=== PATIENT | male | born 1945 | race Caucasian/White ===

== ENCOUNTER → 2017-10-02 06:59 | Outpatient (CLI) | payer MEDICARE, OTHER, SELFPAY ==
[2017-10-02 08:51] LABS: Aspartate Aminotransferase 26 IU/L (17-59); Cholesterol 150 mg/dL (140-199); HDL Cholesterol 65 mg/dL (40-60); LDL Cholesterol Calculated 71 mg/dL (<100); Triglycerides 70 mg/dL (35-150)
== END ==
PROVIDERS: Family Provider Internal Medicine; PCP Internal Medicine; Visit Provider Internal Medicine
DX: E78.00 Pure hypercholesterolemia, unspecified (principal)
CPT/HCPCS: 36415; 80061; 84450

== ENCOUNTER → 2017-11-12 07:14 | Outpatient (CLI) | payer MEDICARE, OTHER, SELFPAY ==
[2017-11-12 08:39] LABS: BUN Creatinine Ratio 21.1 (6-22); Blood Urea Nitrogen 19 mg/dL (9-20); Estimated Glomerular Filt Rate > 60.0 mL/min (>60)
== END ==
PROVIDERS: Family Provider Internal Medicine; PCP Internal Medicine; Visit Provider Internal Medicine
DX: I72.8 Aneurysm of other specified arteries (principal)
CPT/HCPCS: 36415; 82565; 84520

== ENCOUNTER → 2017-11-14 11:28 | Outpatient (CLI) | payer MEDICARE, OTHER, SELFPAY ==
--- NOTE | 2017-11-14 | DI.CT.S_ITS ---
PROCEDURE: CT ANGIO ABDOMEN INDICATIONS: ANEURYSM OF OTHER SPECIFIED ARTIERIES TECHNIQUE: Noncontrast 5 mm axial images obtained through the abdomen. The After the administration of intravenous contrast, 3 mm sections acquired from the diaphragm to the iliac crests. 10 mm maximum intensity projection (MIP) coronal and sagittal reformats were then performed. For radiation dose reduction, the following was used: automated exposure control. COMPARISON: Outside Facility, , CT ABDOMEN/PELVIS WITH CONTRAST, 03/02/2017, 12:27. Outside Facility, , CT ANGIOGRAPHY ABDOMEN AND PELVIS, 05/07/2017, 11:44. FINDINGS: Image quality: Excellent. Extravascular tissues: There is mild dependent atelectasis. Heart size is normal. No focal hepatic lesions identified. Gallbladder appears within normal limits without calcified gallstones. Biliary system is non dilated. Pancreas demonstrates no pancreatic duct dilatation no discrete mass lesion. Spleen is normal in size and enhancement. No adrenal nodules. Kidneys demonstrate no hydronephrosis. Visualized bowel loops demonstrate normal wall thickness and caliber. No free fluid or air. No retroperitoneal or mesenteric adenopathy. No ventral hernias. No suspicious bony abnormalities. No vertebral body compression fractures. Abdominal aorta: The abdominal aorta is normal in caliber and appears widely patent. Mesenteric arteries: The celiac artery as well as the splenic and left hepatic artery appear widely patent. There is a replaced right hepatic artery originating from the superior mesenteric artery. There is interval placement of a stent graft through the proximal right hepatic artery. 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 No internal flow demonstrated into the aneurysm. The more distal right hepatic artery appears patent. The inferior mesenteric artery appears patent. Renal arteries: There are single renal arteries bilaterally which appear patent. IMPRESSION: 1. Interval placement of a stent graft in the proximal right hepatic artery with occlusion of the previously identified aneurysm. Dictated by: Rufino Prather M.D. on 11/19/2017 at 16:49 Approved by: Rufino Prather M.D. on 11/19/2017 at 16:57
== END ==
PROVIDERS: Family Provider Internal Medicine; PCP Internal Medicine; Visit Provider Internal Medicine
DX: I72.8 Aneurysm of other specified arteries (principal)
CPT/HCPCS: 74170; Q9967

== ENCOUNTER → 2018-07-08 08:24 | Outpatient (CLI) | payer MEDICARE, OTHER, SELFPAY ==
[2018-07-08 09:35] LABS: Aspartate Aminotransferase 25 IU/L (17-59); Cholesterol 191 mg/dL (140-199); HDL Cholesterol 73 mg/dL (40-60); LDL Cholesterol Calculated 89 mg/dL (<100); Triglycerides 145 mg/dL (35-150)
== END ==
PROVIDERS: Family Provider Internal Medicine; PCP Internal Medicine; Visit Provider Internal Medicine
DX: E78.00 Pure hypercholesterolemia, unspecified (principal)
CPT/HCPCS: 36415; 80061; 84450

== ENCOUNTER → 2018-10-01 09:06 | Outpatient (CLI) | payer MEDICARE, OTHER, SELFPAY ==
[2018-10-01 16:48] LABS: Prostate Specific Antigen 1.15 ng/mL (0.10-4.00)
== END ==
PROVIDERS: PCP Internal Medicine; Visit Provider Specialist
DX: N40.1 Benign prostatic hyperplasia with lower urinary tract symptoms (principal)
CPT/HCPCS: 36415; 84153

== ENCOUNTER 2019-12-12 00:17 | Emergency (ER) | payer MEDICARE, OTHER, SELFPAY ==
[2019-12-12 00:26] VITALS: BP 204/101; PULSE 95; RESP 19; TEMP 36.9; O2SAT 99; BMI 27.3
[2019-12-12 00:48] VITALS: PULSE 82; O2SAT 94
[2019-12-12] MEDS: LIDOCAINE 2% (UROJET) 5 ML GEL TOP (00:48)
--- NOTE | 2019-12-12 00:54 | ED_ITS ---
HPI - Male Genitourinary General Chief complaint: Urogenital-Male Stated complaint: unable to pee, had surgery this am Time Seen by Provider: 12/12/19 00:26 Source: patient Mode of arrival: Ambulatory Limitations: no limitations History of Present Illness HPI Narrative: 73-year-old gentleman with a history of BPH who had an outpatient urologic procedure in [place] today to help with his overflow incontinence. He was able to void once after the procedure. Was given a single catheter if needed during the night. Around 5 in the afternoon he used the catheter without difficulty shortly after that had an episode of urination with minimal urine output and then increasing pain over the course of the evening. He presents with acute urinary distension and abdominal pain to the emergency room this evening. With the distension he is slightly diaphoretic and has significant abdominal pain Related Data Home Medications Medication Instructions Recorded Confirmed HOMEOPATHIC SUBSTANCE (SAW 1 cap PO QDAY #0 01/02/11 PALMETTO) Nortriptyline Hydrochloride 50 mg PO HS #0 01/02/11 (NORTRIPTYLINE) [LISINOPRIL] 20 mg PO PM #0 01/02/11 [CQ10] 1 tab QDAY #0 07/18/16 loperamide 0 mg PO PRN PRN #0 07/18/16 Previous Rx's Medication Instructions Recorded aspirin 325 mg PO QDAY #30 tab 07/18/16 Allergies Allergy/AdvReac Type Severity Reaction Status Date / Time penicillin V Allergy Unknown Unverified 07/11/17 12:18 Review of Systems Review of Systems Narrative: Pertinent positive and negative findings as per HPI Remainder of review of systems is otherwise unremarkable for Constitutional: Fevers, chills, weakness ENT: No sore throat, neck pain, ear pain CV: Chest pain, palpitations, dyspnea on exertion Respiratory: Cough, wheeze, dyspnea GI: Nausea, vomiting, diarrhea, change in bowel habits, black or bloody stools MS: Muscle weakness, numbness, joint swelling or warmth Skin: Rashes, nonhealing lesions Neuro: Syncope, dizziness, tingling Patient History Medical History BPH (benign prostatic hyperplasia) (Acute) Surgical History Status post rotator cuff repair Social History Smoking Status: Never smoker Smoking Status: Never smoker alcohol intake frequency: 0-2 drinks per day Substance Use Type: does not use Exam Narrative Exam Narrative: General: Healthy appearing, in no acute distress. Able to give a complete and coherent history. Well-nourished well-developed Respiratory: Lungs are clear to auscultation, no wheezing no rales no rhonchi. Full and symmetrical air movement Cardiac: Regular rate and rhythm no murmurs no bruits Abdomen: (after catheter placement) Soft nontender good bowel tones, no flank pain Skin: Warm and dry, no rashes Neurologic: Grossly neurologically intact with no obvious asymmetries or abnormalities Extremities: No trauma, well perfused Psych: Cooperative, appropriate insight and affect Herring catheter placed without difficulty. Bloody urine without clots 700 cc returns immediately with significant relief of pain Initial Vital Signs Initial Vital Signs: Vital Signs Temperature 98.5 F 12/12/19 00:26 Pulse Rate 95 H 12/12/19 00:26 Respiratory Rate 19 12/12/19 00:26 Blood Pressure 204/101 H 12/12/19 00:26 Pulse Oximetry 99 12/12/19 00:26 Course Orders Ordered: Discontinued Medications Lidocaine HCl (Urojet) 5 ml TOP NOW ONE Stop: 12/12/19 00:32 Last Admin: 12/12/19 00:48 Dose: 5 ml Documented by: JEANNINE Vital Signs Vital signs: Vital Signs - 8 hr 12/12/19 00:26 Temperature 98.5 F Pulse Rate 95 H Respiratory Rate 19 Blood Pressure 204/101 H Pulse Oximetry 99 [facility] - Male Genitourinary Medical Records Attestation: I reviewed the patient's medical records. [facility] Narrative Medical decision making narrative: Outpatient procedure done today for BPH and overflow urinary incontinence. Now with acute urinary retention. Herring catheter is placed without difficulty. There is some blood there are no obstructing clots. Pain is significantly relieved. Will leave the Herring cat heter in place and patient has a follow-up appointment already scheduled with his urologist for tomorrow. Discharge Plan Departure Patient Disposition: Home Clinical Impression: Acute retention of urine Instructions: DI for Urinary Retention in Men Activity Restrictions/Additional Instructions: Thank you for coming in today When you were unable to urinate at all, presumably due to postoperative swelling, of Herring catheter was placed without complication. Please keep the catheter in place until you have seen your urologist tomorrow, and follow his recommendations at that point. If you have recurrent pain, the fully stops flowing, you develop fevers or flank pain please return to the emergency department for further evaluation Good luck. Prescriptions: No Action HOMEOPATHIC SUBSTANCE (SAW PALMETTO) 1 cap PO QDAY Qty: 0 RF: 0 Nortriptyline Hydrochloride (NORTRIPTYLINE) 50 mg PO HS Qty: 0 RF: 0 [LISINOPRIL] 20 mg PO PM Qty: 0 RF: 0 loperamide 2 MG capsule 0 mg PO PRN PRNQty: 0 RF: 0 [CQ10] 1 tab QDAY Qty: 0 RF: 0 aspirin 325 MG tablet,delayed release (DR/EC) 325 mg PO QDAY Qty: 30 RF: 0 Referrals: Reyes Knowles MD [Primary Care Provider] -
[2019-12-12 01:00] VITALS: BP 153/77; PULSE 79; O2SAT 96
--- NOTE | 2019-12-12 01:05 | PC.NURSE ---
Pt had urolift procedure today and has not been able to self cath since 1699 due to pain. Bladder feels full, 8/10 pain.
== END 2019-12-12 01:32 | disposition home or self-care (01) ==
PROVIDERS: Emergency Provider Emergency Medicine; PCP Internal Medicine
DX: R33.8 Other retention of urine (principal)
CPT/HCPCS: 51701; 51798; 99284

== ENCOUNTER → 2020-01-23 09:51 | Outpatient (CLI) | payer MEDICARE, OTHER, SELFPAY ==
[2020-01-23 11:35] LABS: Aspartate Aminotransferase 28 IU/L (17-59); BUN Creatinine Ratio 23.5 (6-22); Blood Urea Nitrogen 20 mg/dL (9-20); Calcium 9.4 mg/dL (8.4-10.2); Carbon Dioxide 30 mmol/L (22-32); Chloride 102 mmol/L (98-107); Estimated Glomerular Filt Rate > 60.0 mL/min (>60); Glucose 101 mg/dL (80-110); HEMOLYSIS < 15 (0-50); Potassium 4.5 mmol/L (3.4-5.1); Sodium 136 mmol/L (137-145)
[2020-01-23 12:05] LABS: Prostate Specific Antigen 0.956 ng/mL (0.10-4.00)
== END ==
PROVIDERS: PCP Internal Medicine; Referring Provider Internal Medicine; Visit Provider Internal Medicine
DX: I10 Essential (primary) hypertension (principal); E78.2 Mixed hyperlipidemia; N40.0 Benign prostatic hyperplasia without lower urinary tract symptoms
CPT/HCPCS: 36415; 80048; 84153; 84450

== ENCOUNTER → 2020-06-24 08:06 | Outpatient (CLI) | payer MEDICARE, OTHER, SELFPAY ==
--- NOTE | 2020-06-24 | DI.MRI.S_ITS ---
PROCEDURE: MR CERVICAL SPINE WO CON INDICATIONS: CERVICAL RADICULOPATHY TECHNIQUE: Noncontrast sagittal T1 spin echo and T2 fast spin echo, sagittal STIR, foraminal oblique sagittal T2 fast spin echo, and axial gradient echo or T2 fast spin echo through the cervical spine. COMPARISON: None. FINDINGS: Image quality: Excellent. Alignment and Curvature: There is normal bony alignment. Bones: Status post C4-C7 ACDF. Spinal Cord: Visualized spinal cord has normal size and signal. No cerebellar tonsillar herniation. Paraspinous Soft Tissues: No paravertebral masses. Prevertebral soft tissues are normal in thickness. C2-C3: Loss of disc signal. No central stenosis. Mild bilateral facet hypertrophy. Mild left neural foraminal narrowing. No neural compression. C3-C4: Loss of disc signal. No central stenosis. No neural foraminal narrowing. No neural compression. C4-C5: Status post discectomy and fusion. Mild right and moderate left facet hypertrophy. No central stenosis. Moderate left neural foraminal narrowing. No neural compression. C5-C6: Status post discectomy and fusion. Mild right and moderate left facet hypertrophy. No central stenosis. Mild right neural foraminal narrowing. No neural compression. C6-C7: Status post discectomy and fusion. Mild bilateral facet hypertrophy. No central stenosis. Mild bilateral neural foraminal narrowing. No neural compression. C7-T1: Loss of disc signal. Mild, diffuse disc bulge. Mild bilateral facet hypertrophy. Mild ligamentum flavum hypertrophy. Mild narrowing of the central canal. Mild bilateral neural foraminal narrowing. No neural compression. IMPRESSION: 1. C4-C7 ACDF. 2. No severe central canal narrowing. 3. No severe neural foraminal narrowing. 4. No neural compression. Dictated by: Marlyn Stewart MD, PhD on 06/24/2020 at 14:12 Approved by: Marlyn Stewart MD, PhD on 06/24/2020 at 14:28
== END ==
PROVIDERS: PCP Internal Medicine; Referring Provider Internal Medicine; Visit Provider Internal Medicine
DX: M54.12 Radiculopathy, cervical region (principal); Z98.1 Arthrodesis status
CPT/HCPCS: 72141

== ENCOUNTER → 2020-07-23 10:34 | Outpatient (CLI) | payer MEDICARE, OTHER, SELFPAY ==
--- NOTE | 2020-07-23 11:02 | DI.CT.S_ITS ---
PROCEDURE: CT UE RT WO CON INDICATIONS: Primary osteoarthritis, right shoulder TECHNIQUE: Noncontrast 1-1.5 mm thick sections acquired from the acromioclavicular joint to the inferior scapula, with coronal and sagittal reformatting. COMPARISON: [facility], CR, XR SHOULDER 2+ VIEWS RIGHT, 07/01/2020, 9:25. FINDINGS: Image quality: Excellent. Bones: Moderate to severe glenohumeral joint osteoarthritic changes are seen with near complete loss of mid to inferior joint space and prominent inferior marginal osteophyte formation. Extensive subchondral sclerosis and cyst formation is also seen. Mild to moderate acromioclavicular joint osteoarthritic changes are noted with joint space narrowing, subchondral sclerosis and small marginal osteophyte formation. No fracture or dislocation. No suspicious intraosseous lesion. Nonspecific subcortical cyst formation in posterior lateral humeral head near rotator cuff tendon insertion site is seen. Visualized right upper ribs are grossly intact. Soft tissues: There is moderate subcoracoid bursal fluid collection with 1.5 centimeter calcified structure within the bursa. Small to moderate glenohumeral joint effusion is also seen. No calcified intra-articular loose body. No gross full-thickness rotator cuff tendon rupture or significant rotator cuff muscle atrophy. IMPRESSION: 1. Moderate to severe glenohumeral joint osteoarthritis and mild to moderate acromioclavicular joint osteoarthritis. No shoulder fracture or dislocation. No suspicious intraosseous lesion. 2. Small to moderate glenohumeral joint effusion and moderate to large subcoracoid bursal fluid. 1.5 cm calcified loose body is noted within subcoracoid bursa. No other area of abnormal soft tissue calcification is seen. 3. No gross full-thickness rotator cuff tendon rupture or significant rotator cuff muscle atrophy. Dictated by: Isaac Humphrey M.D. on 07/23/2020 at 11:54 Approved by: Isaac Humphrey M.D. on 07/23/2020 at 12:02
== END ==
PROVIDERS: PCP Internal Medicine; Referring Provider Orthopaedic Surgery; Visit Provider Orthopaedic Surgery
DX: M19.011 Primary osteoarthritis, right shoulder (principal); M24.011 Loose body in right shoulder; M25.411 Effusion, right shoulder
CPT/HCPCS: 73200

== ENCOUNTER → 2020-08-16 07:40 | Outpatient (CLI) | payer MEDICARE, OTHER, SELFPAY ==
[2020-08-16 08:37] LABS: Add Manual Diff / Slide Review NO; Basophils Absolute Auto 0 /uL (0-100); Basophils Percent Auto 0.7 % (0-2); Eosinophils Absolute Auto 200 /uL (0-450); Eosinophils Percent Auto 2.5 % (2-4); Hematocrit 39.4 % (41-53); Hemoglobin 13.5 g/dL (13.5-17.5); Lymphocytes Absolute Auto 2300 /uL (1100-4500); Lymphocytes Percent Auto 37.5 % (25-40); Mean Corpuscular HGB Conc 34.4 % (30-36); Mean Corpuscular Hemoglobin 30.8 PG (26-34); Mean Corpuscular Volume 89.6 fL (80-100); Monocytes Absolute Auto 400 /uL (0-900); Monocytes Percent Auto 6.2 % (3-14); Neutrophils Absolute Auto 3200 /uL (1500-7000); Neutrophils Percent Auto 53.1 % (50-75); Platelet Count 187 X10^3/uL (150-400); Red Blood Cell Count 4.39 X10^6/uL (4.5-5.9); Red Cell Distribution Width 13.9 % (11.6-14.8); White Blood Cell Count 6.1 X10^3/uL (4.5-11.0)
[2020-08-16 08:47] LABS: Hemoglobin A1C% w Est Avg Glu 5.3 % (4.0-6.0)
[2020-08-16 09:21] LABS: Blood Urea Nitrogen 20 mg/dL (9-20); Calcium 9.2 mg/dL (8.4-10.2); Carbon Dioxide 25 mmol/L (22-32); Chloride 104 mmol/L (98-107); Estimated Glomerular Filt Rate > 60.0 mL/min (>60); Glucose 111 mg/dL (80-110); HEMOLYSIS < 15 (0-50); Potassium 4.3 mmol/L (3.4-5.1); Sodium 137 mmol/L (137-145)
== END ==
LOC: LAB 07:43 → RESP 07:45
PROVIDERS: PCP Internal Medicine; Referring Provider Orthopaedic Surgery; Visit Provider Orthopaedic Surgery
DX: Z01.818 Encounter for other preprocedural examination (principal); R73.9 Hyperglycemia, unspecified; M25.511 Pain in right shoulder; Z01.812 Encounter for preprocedural laboratory examination
CPT/HCPCS: 36415; 80048; 83036; 85025; 93005; 93010

== ENCOUNTER → 2020-09-18 08:55 | Outpatient (CLI) | payer MEDICARE, OTHER, SELFPAY ==
[2020-09-18 10:06] LABS: COVID19 -Nasal RAPID Negative (Negative)
== END ==
PROVIDERS: PCP Internal Medicine; Visit Provider Physician Assistant
DX: Z01.812 Encounter for preprocedural laboratory examination (principal); Z20.822 Contact with and (suspected) exposure to COVID-19
CPT/HCPCS: 87635

== ENCOUNTER 2020-09-20 08:10 | Inpatient (IN) | payer MEDICARE, OTHER, SELFPAY ==
[2020-09-20] VITALS (14 sets, daily range): BP systolic 110–144; BP diastolic 58–94; PULSE 75–88; RESP 11–20; TEMP 36.1–36.9; O2SAT 92–97; BMI 28.0
--- NOTE | 2020-09-20 08:47 | DI.RAD.S_ITS ---
PROCEDURE: XR SHOULDER RT 1V INDICATIONS: post op total shoulder TECHNIQUE: Single views of the shoulder were acquired. COMPARISON: None. FINDINGS: Bones: No acute fracture. Expected alignment of right shoulder arthroplasty Soft tissues: Soft tissue postsurgical changes. IMPRESSION: Expected postoperative appearance Dictated by: Jorge Zayas M.D. on 09/20/2020 at 14:29 Approved by: Jorge Zayas M.D. on 09/20/2020 at 14:30
[2020-09-20] MEDS: LACTATED RINGERS 1,000 ML 42 ML IV ×2 (09:05→11:29)
[2020-09-20] MEDS: PREGABALIN 75 MG CAPSULE PO (09:09)
[2020-09-20] MEDS: ACETAMINOPHEN 325 MG TABLET 975 MG PO (09:09)
[2020-09-20] MEDS: CELECOXIB 200 MG CAPSULE PO (09:10)
--- NOTE | 2020-09-20 09:37 | PM.PREOP ---
Pre-operative Note COVID-19 COVID-19 status: Negative Result date/Date tested (Pos, Neg/Pending): 09/18/20 Interval Note History & Physical reviewed/Exam performed by Physician: Yes Changes to H&P: No
--- NOTE | 2020-09-20 09:53 | P.OP_ITS ---
Operative Date/Time/Diagnoses Date of procedure: 09/20/20 Time of procedure: 12:39 Pre-op diagnosis: Right shoulder osteoarthritis Post-op diagnosis: same Procedure & Clinicians Procedure: Right total shoulder replacement Same procedure as scheduled: Yes Indications: The patient has had progressively worsening right shoulder pain with radiographic changes consistent with arthritis. Non-operative management has failed and the patient has requested total shoulder replacement. The risks, benefits and alternatives to surgery were discussed with the patient prior to proceeding. Risks discussed included, but were not limited to, failure to relieve pain, stiffness, infection, nerve damage, deep venous thrombosis, pulmonary embolism, stroke, coma, heart attack, permanent paralysis and , as well as the potential need for eventual revision of the prosthetic. Surgeon: Diego Jean-Baptiste Powder Coat Painter: Jarad Dee Click Yes if Unassisted: No Anesthesia Type: General, Peripheral nerve block and Local Operative Notes Findings: Severe osteoarthritis with very hard bone. Closure Type: primary Specimen(s): none sent Prosthetic devices, grafts, tissues, transplants, or devices: implants made this procedure were manufactured by the [employer] and included an Ecl ipse total shoulder system with a large size cage screw, a 51 mm trunnion and a 51/21 humeral head. In addition a speed bridge system was used to close the subscapularis. Applied: implant(s) Estimated Blood Loss (mL): 200 Blood products transfused: none Procedure in detail: The patient was seen in the pre-operative area, where the patient identified the right shoulder as the operative site and this was marked with my initials. The patient received pre-operative antibiotics, underwent an interscalene block, and was taken to the operating room and placed on the operative table in the supine position. After satisfactory anesthesia, a multimedia journalist out was performed. The patient was repositioned in the beach chair position using a dedicated positioner. All pressure points were well padded, and the knees were slightly bent to prevent tension on the sciatic nerves. The right arm was prepared from the fingers to the base of the neck with ChloroPrep in the usual fashion and draped through sterile drapes. An approximately 15 cm incision was created, starting at the clavicle above the coracoid process and extended towards the deltoid insertion. The deltopectoral interval was used to access the shoulder. The cephalic vein was taken laterally. A self retaining retractor was placed. The upper centimeter of the pectoralis major tendon was released. The three sisters were identified and cauterized. The axillary nerve was palpated and protected throughout the case. The biceps was released from its groove and tenodesed over the top of the pectoralis major tendon. The subscapularis was released from the lesser tuberosity with a subscapularis peel and tagged for later repair. The shoulder was dislocated and a cutting guide was used for the proximal humeral osteotomy in 30 degrees of retroversion. The proximal humeral osteophytes were removed and the proximal h umerus was sized. The beginning for the screw was created with the coring Reamer. The depth of the proximal humerus was measured and a large size cage screw was chosen. A proximal humeral protector was then placed. We then removed the self-retaining retractor and placed retractors to access the glenoid. The subscapularis was released with a 360 degree release with care being taken to protect the axillary nerve with the inferior portion of this procedure. The remnant of labrum and biceps stump were removed. The appropriate size reamer was chosen with the glenoid sizer, and the guide pin placed. The glenoid was appropriately reamed. The guide for the peripheral holes was used and the center hole enlarged. The trial glenoid was placed with good stability. We then cemented the final implant into place after irrigating the peg holes and drying them with thrombin-soaked Gelfoam. We returned our attention to the humerus. The final trunnion was impacted into position and the cage screw placed with good fixation. A trial humeral head was applied and a trial reduction performed. Stability was checked with 50% posterior translation with spontaneous reduction, 45? external rotation at the side with the subscapularis held in the repaired position and 70? of internal rotation in the ?[place]? position. This was felt to be satisfactory and the appropriate implant was opened. The guide was used to place the anchors for the speed bridge in the appropriate position to miss the cage screw. The final head was then impacted into position. The joint was relocated 1 final time and irrigated with sterile saline. The medial anchors were placed for double row repair. The sutures were placed through the appropriate place in the subscapularis. The upper border of the subscapularis was repaired to the anterior edge of the supraspinatus with a [id number] #2 Ethibond suture. The lateral anchors were then placed for the speed bridge repair. This provided excellent repair of the subscapularis. The deltopectoral interval was closed with interrupted 0 Vicryl. The subcutaneous layer was closed with 3-0 Vicryl, and the skin with a running 3-0 V-Lock suture and Dermabond. An Aquacel Ag dressing was applied, the patient's arm was placed in a sling, and the patient was taken to recovery having tolerated the procedure well. Complications: none Post-operative Condition: stable Disposition: PACU Plan for aftercare: The patient will be maintained on a standard total shoulder replacement protocol with passive range of motion limited to 90 degrees forward flexion, 0 degrees external rotation at the side, 0 degrees abduction and internal rotation to the body. The patient will receive aspirin and sequential compression devices for DVT prophylaxis. The patient will be discharged home when safe for the home environment, likely tomorrow.
--- NOTE | 2020-09-20 10:14 | SUR.PREOP ---
Block start time [0953] . Monitoring initiated and maintained throughout procedure. Oxygen and medications given per anesthesiologist instructions. Patient remained stable throughout procedure, no adverse reactions noted. Block end time [1004].
[2020-09-20] MEDS: CEFAZOLIN 1 GM VIAL 2 GM IV (10:20)
[2020-09-20] MEDS: TRANEXAMIC ACID 1,000 MG VIAL 1000 MG INJ ×2 (10:25→12:15)
--- NOTE | 2020-09-20 10:44 | SUR.OPER ---
Beach chair with Schlein shoulder positioner. Lower body on padded OR bed. Head in foam padded head cradle, secured with straps. Non-operative arm secured <90 degrees abduction. Pillow under knees. Safety belt at thigh. Cloth tape over blanket over lower legs.
[2020-09-20] MEDS: BUPIVACAINE 0.5% (PF) VIAL 30 ML INJ (10:52)
[2020-09-20] MEDS: THROMBIN (RECOMBINANT) 5,000 UNIT VIAL 5000 UNIT TOP (10:52)
--- NOTE | 2020-09-20 11:19 | PC.NURSE ---
Day shift: Pt not on AC unit at this time (1120).
--- NOTE | 2020-09-20 11:28 | PM.PROC.1 ---
Procedures Date/Time Date of procedure: 09/20/20 Time of procedure: 10:00 General Procedure description: Ultrasound guided interscalene brachial plexus nerve block for post op pain control after right total shoulder arthroplasty by Dr. Jean-Baptiste. Risk and benefits of procedure discussed with patient. ASA monitoring applied to patient. O2 given via nasal cannula. 2 mg Versed and 50 mcg fentanyl given for procedural sedation. Skin site was prepped with chlorhexidine and allowed to fully dry. Sterile gloves, mask, hat and probe cover were used to maintain sterility. 2% lidocaine and 30ga needle was used to make a small skin wheal at needle insertion site. Under ultrasound guidance, a 21ga 50mm Pajunk needle was directed into the interscalene groove (middle/anterior scalenes) near the brachial plexus. Patient reported no parasthesias. After negative aspiration, 20 mL 0.5% ropivicaine and 10mg dexamethasone were injected around brachial plexus. Patient tolerated procedure well.
--- NOTE | 2020-09-20 13:20 | PC.NURSE ---
Day shift: Pt on AC unit from PACu at approx 1320. Oreinted to room and call light. Agrees to not get OOB w/o help from staff. Call light in reach. Denies any pain or nausea. VS WNL. 97% 2L NC. IV fluids left wrist per MAY. Tolerating ice chips. Dressing rt shoulder Aquacel is CDI. RLE warm to touch and can move fingers. Rt arm in sling. SCD's on and tolerated.
[2020-09-20] MEDS: LACTATED RINGERS 1,000 ML 100 ML IV ×2 (13:30→23:14)
[2020-09-20] MEDS: ACETAMINOPHEN 325 MG TABLET 650 MG PO ×2 (14:04→21:31)
[2020-09-20] MEDS: IBUPROFEN 400 MG TABLET PO ×4 (14:04→23:52)
--- NOTE | 2020-09-20 16:14 | PT.IIE ---
Current Diagnoses Primary osteoarthritis, right shoulder (09/20/20) Surgery Performed Operation Date: 09/20/20 10:15 Actual Procedures p Total Shoulder Arthroplasty(Right) - Diego Jean-Baptiste MD Surgical History (Last Updated 09/13/20 @ 10:18 by Sierra Smiley RN) History of bilateral carpal tunnel release History of surgery History of total right hip arthroplasty (12/2010) Hx of bilateral cataract extraction Hx of cervical spinal arthrodesis (07/2008) Hx of hemorrhoidectomy Hx of nasal septoplasty Hx of tonsillectomy Hx of transurethral resection of prostate Status post rotator cuff repair Medical History (Last Updated 09/13/20 @ 10:20 by Sierra Smiley RN) Anxiety BPH (benign prostatic hyperplasia) Easy bruisability GERD (gastroesophageal reflux disease) HLD (hyperlipidemia) HTN (hypertension) Hx of esophageal spasm (~2018) IBS (irritable bowel syndrome) Osteoarthritis Peripheral neuropathy Physical Therapy Inpatient Evaluation/Re-Eval M1 PT/OT-IP Prior Functional Status Start: 09/20/20 13:24 Freq: NEEDED Status: Active Protocol: Document 09/20/20 16:14 AW (Rec: 09/20/20 16:34 AW [id number]) Medical Review Prior Functional Status Medical History Reviewed Yes Communication Pt is an effective verbal communicator Mobility and Gait Independent without AD Activities of Daily Living and IADL's Independent with all ADL's Prior Functional Level (Other details) Pt had R rotator cuff repair in 1991. He is RHD. He reports low-grade pain in his left shoulder. Social History Household Members spouse Living Arrangements House Number of Floors (Floors) Two Floors Number of Stairs To Enter/Railing? Level entrance. Pt stays mostly on order entry administrator. Home Environment High Toilet,Walk in Shower Home Equipment Grab Bars In Shower Additional Social History Comment Pt has an adjustable bed. He lives with his spouse, Radhika, who is available and able to assist at discharge. M2 PT-IP Current Condition Start: 09/20/20 13:24 Freq: NEEDED Status: Active Protocol: Document 09/20/20 16:14 AW (Rec: 09/20/20 16:34 AW [id number]) Physical Therapy Current Condition Current Condition Evaluation Date 09/20/20 Treatment Diagnosis R TSA; decreased indep with ADL's Onset Date 09/20/20 Precautions Shoulder Precautions Sling,PROM,Internal Rotation to Body,No External Rotation, No Abduction,Forward Flexion to 90 degrees,Pendulums M3 PT-IP Subjective Start: 09/20/20 13:24 Freq: NEEDED Status: Active Protocol: Document 09/20/20 16:14 AW (Rec: 09/20/20 16:34 AW [id number]) Subjective Physical Therapy Visit Type Type Initial Evaluation Visit Start Time 15:52 Visit Stop Time 16:10 Total Visit Minutes 18 Notes Pt's spouse was present throughout evaluation. Physical Therapy Visit Comments Patient Comments Pt is willing to participate with PT Patient Goals Return home with spouse support Therapy Pain Assessment Pain When Pain Assessed During Mobility Pain Present Pain Present Denied Pain M4 PT-IP Mobility and Gait Start: 09/20/20 13:24 Freq: NEEDED Status: Active Protocol: Document 09/20/20 16:14 AW (Rec: 09/20/20 16:34 AW [id number]) PT-Bed Mobility Assessment Supine to Sit Supine to Sit Standby Assistance,Head of Bed Elevated Sit to Supine Sit to Supine Standby Assistance PT-Transfer Assessment Sit to and From Stand Sit to and from Stand Minimal Assistance,1 Person Assistance,Use of Upper Extremities Equipment Transfer Assistive Device Gait Belt Orthotic/Prosthetic Devices or Brace: Yes Transfers Transfer Destination Bed,Toilet Transfer Technique pt amb without AD Transfer Ability Level of Assist Standby Assistance Comments Mobility Comments Pt was in the bathroom as PT arrived. He exited and walked to the bed, completing sit to supine SBA. After interview, pt needed min assist for sit to stand from the bed, stating his bed at home is taller than the hospital bed. He walked to the mirror for education on sling management and fitting. Pt's was present and taking notes. Pt ambulated around the room a total of 40 feet SBA and then requested return to bed. Pt was left with call light and tray table in reach. Gait Assessment Gait Gait Assistance Required: Standby Assistance Distance (Feet) 40 Able to Maintain Weight Bearing Status Yes During Gait Assistive Devices Assistive Device Gait Belt Orthotic/Prosthetic Devices or Brace: Yes Gait Deviations General Gait Pattern Antalgic Factors Limiting Gait Function Factors Limiting Gait Function Limited Range of Motion,Pain Comments Gait Comments Pt was able to safely ambulate in the room without AD Stair Climbing Assessment Comments Stair Climbing Comments Not assessed. PT-Balance Assessment Sitting Balance and Reactions Static Sitting Balance Ability Good Dynamic Sitting Balance Ability Good Standing Balance and Reactions Static Standing Balance Ability Good Dynamic Standing Balance Ability Good Device Used none M5 PT-IP Objective Assessments Start: 09/20/20 13:24 Freq: NEEDED Status: Active Protocol: Document 09/20/20 16:14 AW (Rec: 09/20/20 16:34 AW [id number]) Orientation Orientation/Cognition Level of Alertness Alert Orientation Name,Day of Week,Place, Situation Language Function Ability No Deficits Noted Safety Awareness Understands Safety Issues Memory Description No Deficits Noted Gross Range of Motion Upper Extremity ROM Assessment Right Impaired Lower Extremity ROM Assessment Within Functional Limits Strength Upper Extremity Strength Assessment Right Impaired Lower Extremity Strength Assessment Within Functional Limits Comments Strength Comments L shoulder grossly 5/5 Sensation Assessment Sensation Gross Sensation Right UE Impaired Light Touch Impaired Proprioception (Position) Impaired Sensation Description Numbness Muscle Tone Muscle Tone WNL Yes M6 PT-IP Treatment Start: 09/20/20 13:24 Freq: NEEDED Status: Active Protocol: Document 09/20/20 16:14 AW (Rec: 09/20/20 16:34 AW [id number]) Physical Therapy Treatment Exercises Exercises Shoulder Pendulums,Elbow Flexion/Extension,Wrist ROM, Hand ROM Education Education Provided Precautions,Post-Op Packet, Safety Brace Education [place],Patient, Caregiver Other Treatments Other Treatment Performed Provided education on PT plan of care, sling management, and ADL management. PT demonstrated exercises but pt unable to perform at this time due to numbness. Will review UE AROM at next session. M7 PT-IP Assessment and Plan Start: 09/20/20 13:24 Freq: NEEDED Status: Active Protocol: Document 09/20/20 16:14 AW (Rec: 09/20/20 16:34 AW [id number]) PT Summary Assessment and Plan Potential Rehabilitation Potential Excellent Status of Condition at Evaluation Evolving Summary Impairments Pain,ROM,Strength,Sensation, Bed Mobility,Gait Assessment Summary Rosio is a 74 yo man seen for PT evaluation on POD0 following R TSA. He is independent in all regards at baseline. On evaluation, pt required SBA for most mobilities. He and his expressed understanding of sling management education; PT will review and have pt return demonstrate at next session. PT anticipates pt will be safe to discharge home with spouse assist and outpatient PT once medically stable. Goals Bed Mobility Goal Independent Transfer Goal Independent Gait Goal Independent Gait Distance 200 Days to Meet Goals 2 Frequency of Treatment Frequency Of Treatment Twice a Day Treatment Plan Physical Therapy Treatment Plan Bed Mobility Training,Transfer Training,Gait Training, Therapeutic Exercise,Post Op Education,Discharge Planning, Hot or Cold Pack Other Recommendations and Next Treatment review sling mangement and Focus ADLs; ther ex Precautions Shoulder Precautions Sling,PROM,Internal Rotation to Body,No External Rotation, No Abduction,Forward Flexion to 90 degrees,Pendulums Recommendations To Nursing Amount of Assist Needed Standby Assistance Discharge Recommendations PT Discharge Recommendations Home with Assistance, Outpatient PT Equipment Needed for Home Before recommend shower stool Discharge Transportation Needs at Discharge Private Vehicle
[2020-09-20] MEDS: lisinopriL 20 MG TABLET PO (21:31)
[2020-09-20] MEDS: NORTRIPTYLINE HCL 25 MG CAPSULE 50 MG PO (21:31)
[2020-09-20] MEDS: DOCUSATE 100 MG CAPSULE PO (21:31)
[2020-09-20] MEDS: ASPIRIN EC 81 MG TABLET PO (21:31)
[2020-09-20] MEDS: AMLODIPINE 5 MG TABLET PO (21:31)
[2020-09-20] MEDS: ATORVASTATIN 20 MG TABLET 40 MG PO (21:31)
--- NOTE | 2020-09-20 22:30 | PC.NURSE ---
Patient VSS, denies pain. Has feeling back in his fingers but still has numbness in his upper right arm, CMS is intact. Aquacel dressing is CDI.The sling is correctly placed. Patient has been up to the bathroom and worked with physical therapy this afternoon. Bed is low and locked, call light is within reach, bed alarm is active.
[2020-09-20] MEDS: OXYCODONE IR 5 MG TABLET PO ×2 (23:14→23:51)
[2020-09-21] MEDS: HYDROMORPHONE 2 MG TABLET PO ×3 (02:45→08:58)
[2020-09-21 03:25] VITALS: BP 139/84; PULSE 84; RESP 16; TEMP 36.7; O2SAT 95
[2020-09-21] MEDS: IBUPROFEN 400 MG TABLET PO ×2 (06:06→08:57)
[2020-09-21 06:12] LABS: Hemoglobin 11.7 g/dL (13.5-17.5)
--- NOTE | 2020-09-21 07:34 | PM.PNPO.1 ---
Subjective Subjective Date Patient Seen: 09/21/20 Time Patient Seen: 07:35 Interval history: Patient states he is doing well overall and is in mild discomfort at rest. At this time he denies fever, chills, nausea, chest pain, shortness of breath, or urinary retention. Patient reports good sensation throughout the bilateral upper extremities. Patient notes he is eager to be discharged home today. Exam Vital Signs (past 8 hours): - 09/21/20 03:25 Temperature 98.0 F Pulse Rate 84 Respiratory Rate 16 Blood Pressure 139/84 Pulse Oximetry 95 Oxygen Delivery Method Room Air Oxygen Flow Rate 0 Narrative Exam Narrative: 74-year-old male postop day 1 status post right anatomical total shoulder arthroplasty. Patient is resting comfortably in bed, is in no acute distress, is alert and oriented x3. Skin is warm and dry, and the skin surrounding the incision site is free of erythema, warmth, induration, or discharge. Aquacel dressing over the incision site is clean, dry, and intact. Good sensation appreciated throughout the bilateral upper extremities to light touch. Gross motor function intact. Radial pulses palpated bilaterally. Capillary refill less than 2 seconds. Const General: cooperative, healthy appearing and comfortable Resp Effort & Inspection: normal respiratory effort and able to speak in complete sentences Skin General: no rashes or lesions noted Objective Labs Result Diagrams: 09/21/20 06:00 Labs: Laboratory Results - last 24 hr 09/21/20 06:00 Hgb 11.7 L Hct 35.0 L PFSH Medical History Anxiety BPH (benign prostatic hyperplasia) Easy bruisability GERD (gastroesophageal reflux disease) HLD (hyperlipidemia) HTN (hypertension) Hx of esophageal spasm (~2018) IBS (irritable bowel syndrome) Osteoarthritis Peripheral neuropathy Surgical History History of bilateral carpal tunnel release History of surgery History of total right hip arthroplasty (12/2010) Hx of bilateral cataract extraction Hx of cervical spinal arthrodesis (07/2008) Hx of hemorrhoidectomy Hx of nasal septoplasty Hx of tonsillectomy Hx of transurethral resection of prostate Status post rotator cuff repair Social History household members: spouse Smoking Status: Former smoker alcohol intake: current Assessment & Plan Post-op Postoperative Procedures: Procedures Operation Date: 09/20/20 10:15 Actual Procedures Side Surgeon p Total Shoulder Arthroplasty Right Diego Jean-Baptiste MD Postoperative day: 1 Postoperative status: doing well Postoperative plan: ambulate Postoperative plan narrative: Patient is to continue current pain management regimen as it is adequately controlling patient's pain level at this time. Patient is to continue aspirin 81 mg twice daily for DVT prophylaxis along with the assistance of sequential compression devices. Patient is to remain in standard total shoulder replacement protocol. Passive range of motion limited to 90 degrees forward flexion, 0 degrees external rotation at the side, 0 degrees abduction and internal rotation to the body. Plan for discharge likely home today following work with physical therapy.
--- NOTE | 2020-09-21 08:21 | PT.IPTN ---
Current Diagnoses Primary osteoarthritis, right shoulder (09/20/20) Surgery Performed Operation Date: 09/20/20 10:15 Actual Procedures p Total Shoulder Arthroplasty(Right) - Diego Jean-Baptiste MD Physical Therapy Treatment Note M2 PT-IP Current Condition Start: 09/20/20 13:24 Freq: NEEDED Status: Active Protocol: Document 09/20/20 16:14 AW (Rec: 09/20/20 16:34 AW [id number]) Physical Therapy Current Condition Current Condition Evaluation Date 09/20/20 Treatment Diagnosis R TSA; decreased indep with ADL's Onset Date 09/20/20 Precautions Shoulder Precautions Sling,PROM,Internal Rotation to Body,No External Rotation, No Abduction,Forward Flexion to 90 degrees,Pendulums M3 PT-IP Subjective Start: 09/20/20 13:24 Freq: NEEDED Status: Active Protocol: Document 09/21/20 07:59 SP (Rec: 09/21/20 08:52 SP [id number]) Subjective Physical Therapy Visit Type Type Treatment Note Visit Start Time 07:58 Visit Stop Time 08:21 Total Visit Minutes 23 Number of FAILURE ANALYSIS ENGINEER Visits 1 Physical Therapy Visit Comments Patient Comments Pt is willing to participate with PT Patient Goals Return home with spouse support Therapy Pain Assessment Pain When Pain Assessed During Mobility Pain Present Pain Present Pain Reported Location Right Shoulder Intensity 5 Scale Used Numeric (0 - 10) Description With Movement Pain Behaviors Facial Grimacing Pain Management Techniques Re-positioning,Timing of Activity with Medications M4 PT-IP Mobility and Gait Start: 09/20/20 13:24 Freq: NEEDED Status: Active Protocol: Document 09/21/20 07:59 SP (Rec: 09/21/20 08:52 SP [id number]) PT-Bed Mobility Assessment Supine to Sit Supine to Sit Standby Assistance,Head of Bed Elevated Scooting Scooting to Edge of Bed Standby Assistance PT-Transfer Assessment Sit to and From Stand Sit to and from Stand Standby Assistance,Use of Upper Extremities Equipment Transfer Assistive Device None,Gait Belt Orthotic/Prosthetic Devices or Brace: Yes Transfers Transfer Destination Chair Transfer Technique pt amb without AD Transfer Ability Level of Assist Standby Assistance Comments Mobility Comments Pt was inclined in bed when arrived. Completed elevated supine>sitting to R and scoot to EOB SBA using LUE and trunk righting core strength. Good sitting balance at EOB, provided education proper UE positioning in sling assisted repositioning sling for improved RUE support due to twisting posteriorly and hand dangling out of sling and good understanding. Sit>stand CGA then walked around EOB to get mask CGA initially, required assistance to don mask. Pt ambulated further distance into hallway no AD CGA> SBA as distance progressed, total 235 ft no AD, noted more posterior COG improved with cuing for weightbearing into forefoot, noted 1 wt shift deviation during turn but self recovery. Pt returned to chair when arrived to room with good slow descent using LUE. FAILURE ANALYSIS ENGINEER education doffing sling and RUE post op ex in sitting supporte on pillow. Sit<>stand SBA w/ LUE and education on donning sling while supported on raised bed Enio for trunk strap, good fit only distal IP to DIP showing out of sling. Pt returned to chair SBA, had call light and all needs in reach. Pt is ok to return home with family to assist him. Pt has outpt therapy set up in 2 weeks and knows to continue ex as instructed in sitting RUE supported but otherwise needs to keep sling on, he states will be sleeping in recliner. Gait Assessment Gait Gait Assistance Required: Standby Assistance,Contact Guard Assist Distance (Feet) 235 Able to Maintain Weight Bearing Status Yes During Gait Assistive Devices Assistive Device None,Gait Belt Orthotic/Prosthetic Devices or Brace: Yes Gait Deviations General Gait Pattern Antalgic,Decreased Stride Length Factors Limiting Gait Function Factors Limiting Gait Function Limited Range of Motion,Pain Comments Gait Comments see mobility comments Stair Climbing Assessment Comments Stair Climbing Comments Not assessed, states level enterance and not planning to go down stairs to basement. PT-Balance Assessment Sitting Balance and Reactions Static Sitting Balance Ability Normal Dynamic Sitting Balance Ability Good Standing Balance and Reactions Static Standing Balance Ability Good Dynamic Standing Balance Ability Good Device Used none M5 PT-IP Objective Assessments Start: 09/20/20 13:24 Freq: NEEDED Status: Active Protocol: Document 09/20/20 16:14 AW (Rec: 09/20/20 16:34 AW [id number]) Orientation Orientation/Cognition Level of Alertness Alert Orientation Name,Day of Week,Place, Situation Language Function Ability No Deficits Noted Safety Awareness Understands Safety Issues Memory Description No Deficits Noted Gross Range of Motion Upper Extremity ROM Assessment Right Impaired Lower Extremity ROM Assessment Within Functional Limits Strength Upper Extremity Strength Assessment Right Impaired Lower Extremity Strength Assessment Within Functional Limits Comments Strength Comments L shoulder grossly 5/5 Sensation Assessment Sensation Gross Sensation Right UE Impaired Light Touch Impaired Proprioception (Position) Impaired Sensation Description Numbness Muscle Tone Muscle Tone WNL Yes M6 PT-IP Treatment Start: 09/20/20 13:24 Freq: NEEDED Status: Active Protocol: Document 09/21/20 07:59 SP (Rec: 09/21/20 08:52 SP [id number]) Physical Therapy Treatment Exercises Exercises Shoulder Pendulums,Elbow Flexion/Extension,Wrist ROM, Hand ROM Education Education Provided Precautions,Post-Op Packet, Safety Brace Education [place],Patient Other Treatments Other Treatment Performed Instructed post op ex: finger flexion/ext AROM, wrist flex/ ext/pron/ sup AROM while supported on pillow, PROM elbow flex/ext and standing pendulum with support of LUE on bed, allowing RUE hang body wt shifting flex/ ext/ sts/ CW/CCW directions, discussed good position for washing under arm while in shower. M7 PT-IP Assessment and Plan Start: 09/20/20 13:24 Freq: NEEDED Status: Active Protocol: Document 09/21/20 07:59 SP (Rec: 09/21/20 08:52 SP [id number]) PT Summary Assessment and Plan Potential Rehabilitation Potential Excellent Status of Condition at Evaluation Evolving Summary Impairments Pain,ROM,Strength,Sensation, Bed Mobility,Gait Progress Towards Goals Progressing Toward Goals,Slow Progress due to Pain Assessment Summary Pt requires SBA during all mobility. Good recall to RUE in sling unless seated ex supported or showering. Pt is ok to return home with family to support him when medically cleared. Pt has outpt PT set up in 2 weeks. Goals Bed Mobility Goal Independent Transfer Goal Independent Gait Goal Independent Gait Distance 200 Days to Meet Goals 2 Frequency of Treatment Frequency Of Treatment Twice a Day Treatment Plan Physical Therapy Treatment Plan Bed Mobility Training,Transfer Training,Gait Training, Therapeutic Exercise,Post Op Education,Discharge Planning, Hot or Cold Pack Other Recommendations and Next Treatment review sling mangement and Focus ADLs; ther ex, dynamic balance Precautions Shoulder Precautions Sling,PROM,Internal Rotation to Body,No External Rotation, No Abduction,Forward Flexion to 90 degrees,Pendulums Recommendations To Nursing Amount of Assist Needed Standby Assistance Discharge Recommendations PT Discharge Recommendations Home with Assistance, Outpatient PT Equipment Needed for Home Before recommend shower stool Discharge Transportation Needs at Discharge Private Vehicle
[2020-09-21] MEDS: ASPIRIN EC 81 MG TABLET PO (08:57)
[2020-09-21] MEDS: PANTOPRAZOLE DR 20 MG TABLET PO (08:57)
[2020-09-21] MEDS: DOCUSATE 100 MG CAPSULE PO (08:57)
[2020-09-21] MEDS: ACETAMINOPHEN 325 MG TABLET 650 MG PO (08:57)
[2020-09-21 08:58] VITALS: BP 121/66; PULSE 79; RESP 16; TEMP 36.7; O2SAT 98
--- NOTE | 2020-09-21 10:40 | PC.NURSE ---
Pt is dressed and ready for discharge home. Spouse is at the bedside. Pain is well controlled. Went over d/c instructions with Pt and Spouse-discussed d/c meds, time of last dose, reviewed stroke education, s/s of infection, follow up, reminded Pt not to drive while taking narcotics, to drink plenty of fluids to prevent constipation or dehydration, and to follow up as directed.
--- NOTE | 2020-09-21 14:53 | CM.DANOTE ---
DCP ASSESSMENT: Patient is a 74 year-old male admitted to hospital for a right total shoulder replacement. PCP is Reyes Knowles. Primary payer is Medicare and [facility]. 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 Patient was sitting in a chair alert and oriented. Educated patient of social work role in discharge planning. Patient reported he is independent with ADL?s at baseline. Patient is aware and has outpatient PT scheduled in [place] starting next week. will provide transportation at time of D/C. PLAN: Anticipate D/C home. CM Team to continue to follow. 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 Yes Advance Directives on File No History Provided By Patient,Significant Other, Medical Record Has Patient been admitted in last 30 No days? Prior Living Arrangements House Household Members spouse Type of transporation used prior to Drives own vehicle admit Comment can assist during recovery period Independent with ADL's Yes Is patient alert and oriented? Yes Caregiver for Another No Discharge Plan Home Transportation Arrangement Radhika will provide transporation Referrals Initiated None needed Whiteboard Updated in Patient Room with Yes name and ext. # of Sports Equipment Supervisor Review Status In Process Pre-Anesthesia Assessment Start: 09/13/20 09:55 Freq: Status: Discharge Protocol: Document 09/20/20 07:21 CAB (Rec: 09/13/20 10:57 CAB [id number]) Pre-Anesthesia Assessment PAC Comment PCP visit 09/17/20 w/clearance scanned and placed in chart for dos. 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 No Height 193.04 cm Weight 104.326 kg Body Mass Index (BMI) 28.0 Hearing Ability Normal Visual Assist Glasses Dentition Type Teeth, Natural Present,Teeth, Missing,Dental Implants Barriers to Learning None Hx Anesthesia Reactions No Hx Family Anesthesia Reaction No Hx Malignant Hyperthermia No Hx Blood Transfusions No Anesthesia Review Requested No alcohol intake current alcohol intake frequency a few times a week Smoking Status Former smoker how long ago did patient quit smoking Quit age 52 Substance Use Type does not use Pain Present Pain Reported Musculoskeletal Symptoms Back Pain,Joint Pain,Limited Range of Motion History of Falling (Recent or History of No ) Patient is completely paralyzed or No completely immobile Mental Status Oriented to own ability Is patient on oxygen? No Does patient have HILL/SOB No Hx Sleep Apnea No Currently Taking a Beta [place] No Can You Climb a Flight of Stairs Without Yes SOB Hx Chest Pain Yes: Worked up-esophageal spasm, no chest pain since Hx Syncope or Dizziness Yes: Dizziness-occasional Anti-Coagulant Therapy No Has a Shore Man No Cardiac Testing No Hx Pacemaker/ICD No Pacemaker Rep Required? No Cardiac Clearance Received Not Applicable Diet Type At Home Regular dysphagia No Gastrointestinal Symptoms Reflux Urinary Catheter Present No Hx Urinary Self Catheterization No Diabetes No HgbA1C 5.3 Date 08/16/20 Hx Drug Resistant Organism No Presence of External or Internal Medical Yes: Steve eyes, right hip, Devices cervical Have you had any close contact with No someone diagnosed with COVID-19? Marital Status Lives With spouse Prior Living Arrangements House Number of Floors (Floors) Two Floors Support System Spouse Does the Patient Have Assistance After Yes Surgery Patient Discharge Plan Description Return Home Comment Pt advised overnight length of stay per surgeon Feels Safe in Current Environment Yes Been Physically Hurt or Threatened By a No Person in Current Environment Do you have thoughts of harming yourself None or others? Are you currently considering suicide? No Do you have a plan to hurt yourself or No Plan others? Do You Have Any Spiritual Beliefs That No May Affect Your HC Choices? Do You Have Any Cultural Practices That No May Affect Your HC Choices? Comment LDS Who Can We Speak to About Patient's Care Family, friends Identifying Code for Release of Patient Declines to issue Information Health Care Proxy/Next of Kin Radhika () Health Care Proxy Emergency Contact Name Radhika () Jose Martin ( daughter) Emergency Contact Phone Number Radhika: [phone] Jose Martin: [phone] Advance Directives? Yes Advance Directives on File No Requested Patient Bring Advanced Yes Directives DOS Power of Radiology Clerk Yes Power of Radiology Clerk Name Radhika () Power of Radiology Clerk PAC Instructions Durable medical equipment, Medications to take/avoid, Nasal antibiotic,No ETOH/ petroleum product on skin DOS, NPO,Post-op transportation,Pre -surgical wash,Sturdy shoes/ comfortable clothes,Do not bring valuables and remove jewelry
== END 2020-09-21 10:49 | disposition home or self-care (01) | DRG 483 ==
LOC: AC 11:18 → OR 09-21 08:01 → AC 09-21 08:01
PROVIDERS: Admitting Provider Orthopaedic Surgery; PCP Internal Medicine; Referring Provider Orthopaedic Surgery; Visit Provider Orthopaedic Surgery
PROC: 0RQJ0ZZ Repair Right Shoulder Joint, Open Approach (ICD-10-PCS; CPT 23472; principal; 2020-09-20 10:15)
DX: M19.011 Primary osteoarthritis, right shoulder (principal); Z20.822 Contact with and (suspected) exposure to COVID-19; I10 Essential (primary) hypertension; E78.5 Hyperlipidemia, unspecified; Z87.891 Personal history of nicotine dependence
CPT/HCPCS: 36415; 64450; 73020; 85014; 85018; 87635; 94762; 97116; 97161; 97530; C1776; C9803; J0690; J1100; J2250; J2704; J3010

== ENCOUNTER → 2021-09-26 09:15 | Outpatient (CLI) | payer MEDICARE, OTHER, SELFPAY ==
[2021-06-11 11:44] VITALS: BMI 28.0
[2021-09-26 09:38] LABS: Hematocrit 40.3 % (41-53); Mean Corpuscular HGB Conc 34.8 % (30-36); Mean Corpuscular Hemoglobin 31.1 PG (26-34); Mean Corpuscular Volume 89.5 fL (80-100); Platelet Count 207 X10^3/uL (150-400); Red Blood Cell Count 4.51 X10^6/uL (4.5-5.9); Red Cell Distribution Width 13.7 % (11.6-14.8)
[2021-09-26 10:07] LABS: Alanine Aminotransferase 19 IU/L (<50); Albumin 4.5 g/dL (3.5-5.0); Albumin Globulin Ratio 1.5 (1.0-2.8); Alkaline Phosphatase 67 U/L (38-126); Aspartate Aminotransferase 38 IU/L (17-59); BUN Creatinine Ratio 23.3 (6-22); Bilirubin Total 0.8 mg/dL (0.2-1.3); Blood Urea Nitrogen 20 mg/dL (9-20); Calcium 9.2 mg/dL (8.4-10.2); Carbon Dioxide 27 mmol/L (22-32); Chloride 103 mmol/L (98-107); Cholesterol 198 mg/dL (140-199); Estimated Glomerular Filt Rate > 60 mL/min (>60); Globulin 3.1 g/dL (1.7-4.1); Glucose 109 mg/dL (80-110); HDL Cholesterol 67 mg/dL (40-60); HEMOLYSIS 18 (0-50); LDL Cholesterol Calculated 107 mg/dL (<100); Potassium 4.4 mmol/L (3.4-5.1); Sodium 138 mmol/L (137-145); Total Protein 7.6 g/dL (6.3-8.2); Triglycerides 118 mg/dL (35-150)
[2021-09-26 10:34] LABS: Prostate Specific Antigen 1.12 ng/mL (0.10-4.00)
== END ==
PROVIDERS: PCP Internal Medicine; Referring Provider Internal Medicine; Visit Provider Internal Medicine
DX: I10 Essential (primary) hypertension (principal); E78.2 Mixed hyperlipidemia; N40.1 Benign prostatic hyperplasia with lower urinary tract symptoms; G47.9 Sleep disorder, unspecified; N13.8 Other obstructive and reflux uropathy
CPT/HCPCS: 36415; 80053; 80061; 84153; 84443; 85027

== ENCOUNTER → 2022-06-08 09:41 | Outpatient (CLI) | payer MEDICARE, OTHER, SELFPAY ==
[2021-06-11 11:44] VITALS: BMI 28.0
[2022-06-08 10:22] LABS: Hematocrit 39.9 % (41-53); Hemoglobin 13.2 g/dL (13.5-17.5); Mean Corpuscular HGB Conc 33.2 % (30-36); Mean Corpuscular Hemoglobin 29.8 PG (26-34); Mean Corpuscular Volume 89.7 fL (80-100); Platelet Count 190 X10^3/uL (150-400); Red Blood Cell Count 4.45 X10^6/uL (4.5-5.9); Red Cell Distribution Width 14.5 % (11.6-14.8); White Blood Cell Count 6.8 X10^3/uL (4.5-11.0)
[2022-06-08 11:14] LABS: Alanine Aminotransferase 23 IU/L (<50); Albumin 4.3 g/dL (3.5-5.0); Albumin Globulin Ratio 1.4 (1.0-2.8); Alkaline Phosphatase 68 U/L (38-126); Aspartate Aminotransferase 29 IU/L (17-59); BUN Creatinine Ratio 24.7 (6-22); Bilirubin Total 0.7 mg/dL (0.2-1.3); Blood Urea Nitrogen 21 mg/dL (9-20); Calcium 9.1 mg/dL (8.4-10.2); Carbon Dioxide 30 mmol/L (22-32); Chloride 101 mmol/L (98-107); Estimated Glomerular Filt Rate > 60 mL/min (>60); Glucose 104 mg/dL (80-110); HEMOLYSIS < 15 (0-50); Potassium 4.5 mmol/L (3.4-5.1); Sodium 138 mmol/L (137-145); Total Protein 7.3 g/dL (6.3-8.2)
[2022-06-08 11:54] LABS: TSH w/ Reflex to FT4 0.73 uIU/mL (0.47-4.68)
== END ==
PROVIDERS: PCP Internal Medicine; Referring Provider Internal Medicine; Visit Provider Internal Medicine
DX: R53.83 Other fatigue (principal)
CPT/HCPCS: 36415; 80053; 84443; 85027

== ENCOUNTER → 2022-07-15 08:42 | Outpatient (CLI) | payer MEDICARE, OTHER, SELFPAY ==
[2021-06-11 11:44] VITALS: BMI 28.0
--- NOTE | 2022-07-15 08:44 | DI.MRI.S_ITS ---
PROCEDURE: MR HEAD/BRAIN WO/W CON INDICATIONS: cerebrovascular disease TECHNIQUE: Noncontrast axial T1 spin echo, axial T2 fast spin echo, sagittal and axial FLAIR, coronal T2 fast spin echo, axial gradient echo, axial diffusion and ADC through the brain. After the administration of contrast, axial and coronal and sagittal T1 spin echo with fat saturation through the brain. COMPARISON: None. FINDINGS: Image quality: Excellent. CSF spaces: Basal cisterns are patent. No extra-axial fluid collections. Ventricles are normal in size and shape. Brain: No midline shift. No intracranial bleeds or masses. No abnormal intracranial enhancement. There is cerebral volume loss for age. There is periventricular white matter chronic small vessel ischemic change. The brainstem appears normal. Diffusion-weighted images demonstrate no acute ischemic insults. No chronic ischemic insults. Normal intravascular flow voids are present. Skull and face: Calvarial marrow is normal in signal. Orbits appear normal. Sinuses: Mild bilateral ethmoid sinus mucosal thickening. Small amount left mastoid fluid.. IMPRESSION: 1. Mild volume loss and small vessel ischemic disease. 2. No acute process. No recent infarct. 3. Mild sinus and mastoid disease as described above. Dictated by: Jessica English M.D. on 07/17/2022 at 8:19 Approved by: Jessica English M.D. on 07/17/2022 at 8:22
== END ==
PROVIDERS: PCP Internal Medicine; Referring Provider Internal Medicine; Visit Provider Internal Medicine
DX: G47.10 Hypersomnia, unspecified (principal); I67.9 Cerebrovascular disease, unspecified
CPT/HCPCS: 70553; A9579

== ENCOUNTER → 2022-09-28 10:49 | Outpatient (CLI) | payer MEDICARE, OTHER, SELFPAY ==
[2021-06-11 11:44] VITALS: BMI 28.0
[2022-09-28 13:36] LABS: Aspartate Aminotransferase 27 IU/L (17-59); BUN Creatinine Ratio 20.5 (6-22); Blood Urea Nitrogen 18 mg/dL (9-20); Calcium 9.2 mg/dL (8.4-10.2); Carbon Dioxide 28 mmol/L (22-32); Chloride 102 mmol/L (98-107); Cholesterol 188 mg/dL (140-199); Estimated Glomerular Filt Rate > 60 mL/min (>60); Glucose 104 mg/dL (80-110); HDL Cholesterol 80 mg/dL (40-60); HEMOLYSIS < 15 (0-50); LDL Cholesterol Calculated 87 mg/dL (<100); Potassium 4.3 mmol/L (3.4-5.1); Sodium 138 mmol/L (137-145); Triglycerides 104 mg/dL (35-150)
== END ==
PROVIDERS: PCP Internal Medicine; Referring Provider Internal Medicine; Visit Provider Internal Medicine
DX: E78.2 Mixed hyperlipidemia (principal); I10 Essential (primary) hypertension
CPT/HCPCS: 36415; 80048; 80061; 84450

== ENCOUNTER → 2022-10-07 09:28 | Outpatient (CLI) | payer MEDICARE, OTHER, SELFPAY ==
[2021-06-11 11:44] VITALS: BMI 28.0
[2022-10-11 14:09] LABS: Cortisol Fr ug/24hr urine 73 ug/24 hr (5-64); Cortisol, Free, Urine 25 ug/L (Undefined)
== END ==
PROVIDERS: PCP Internal Medicine; Referring Provider Internal Medicine; Visit Provider Internal Medicine
DX: E24.0 Pituitary-dependent Cushing's disease (principal)
CPT/HCPCS: 82530

== ENCOUNTER → 2022-10-24 14:40 | Outpatient (CLI) | payer MEDICARE, OTHER, SELFPAY ==
[2021-06-11 11:44] VITALS: BMI 28.0
[2022-10-24 16:12] LABS: Iron 76 ug/dL (49-181)
[2022-10-24 16:24] LABS: C-Reactive Protein Quant < 0.5 mg/dL (<1.0)
[2022-10-24 16:25] LABS: Total Iron Binding Capacity 351 ug/dL (261-462)
[2022-10-24 16:54] LABS: Ferritin 30 ng/mL (18-464)
== END ==
PROVIDERS: PCP Internal Medicine; Referring Provider Pediatrics; Visit Provider Pediatrics
DX: D50.9 Iron deficiency anemia, unspecified (principal); G47.61 Periodic limb movement disorder; G25.81 Restless legs syndrome
CPT/HCPCS: 36415; 82728; 83540; 83550; 86140

== ENCOUNTER → 2023-01-26 12:55 | Outpatient (CLI) | payer MEDICARE, OTHER, SELFPAY ==
[2021-06-11 11:44] VITALS: BMI 28.0
[2023-01-26 14:16] LABS: Iron 140 ug/dL (49-181)
[2023-01-26 14:20] LABS: C-Reactive Protein Quant < 0.5 mg/dL (<1.0)
[2023-01-26 14:27] LABS: Total Iron Binding Capacity 326 ug/dL (261-462)
[2023-01-26 14:52] LABS: Ferritin 39 ng/mL (18-464)
== END ==
PROVIDERS: PCP Internal Medicine; Referring Provider Pediatrics; Visit Provider Pediatrics
DX: D50.9 Iron deficiency anemia, unspecified (principal); G25.81 Restless legs syndrome
CPT/HCPCS: 36415; 82728; 83540; 83550; 86140

== ENCOUNTER → 2023-06-13 08:10 | Outpatient (CLI) | payer MEDICARE, OTHER, SELFPAY ==
[2021-06-11 11:44] VITALS: BMI 28.0
[2023-06-13 09:00] LABS: Hematocrit 40.4 % (41-53); Hemoglobin 13.9 g/dL (13.5-17.5); Mean Corpuscular HGB Conc 34.4 % (30-36); Mean Corpuscular Hemoglobin 31.5 PG (26-34); Mean Corpuscular Volume 91.7 fL (80-100); Platelet Count 183 X10^3/uL (150-400); Red Cell Distribution Width 13.7 % (11.6-14.8); White Blood Cell Count 6.1 X10^3/uL (4.5-11.0)
[2023-06-13 09:21] LABS: HEMOLYSIS < 15 (0-50)
[2023-06-13 09:32] LABS: Total Iron Binding Capacity 284 ug/dL (261-462); Transferrin 250 mg/dL (206-381)
[2023-06-13 09:36] LABS: C-Reactive Protein Quant < 0.5 mg/dL (<1.0)
[2023-06-13 09:57] LABS: Ferritin 236 ng/mL (18-464)
[2023-06-13 14:23] LABS: Iron 108 ug/dL (49-181); Percent Iron Saturation 38 % (20-50)
== END ==
PROVIDERS: PCP Internal Medicine; Referring Provider Pediatrics; Visit Provider Pediatrics
DX: G25.81 Restless legs syndrome (principal); D50.9 Iron deficiency anemia, unspecified; E61.1 Iron deficiency
CPT/HCPCS: 36415; 82728; 83540; 83550; 85027; 86140

== ENCOUNTER → 2023-09-13 07:41 | Outpatient (CLI) | payer MEDICARE, OTHER, SELFPAY ==
[2021-06-11 11:44] VITALS: BMI 28.0
[2023-09-13 08:32] LABS: Hematocrit 40.7 % (41-53); Mean Corpuscular HGB Conc 34.3 % (30-36); Mean Corpuscular Hemoglobin 31.7 PG (26-34); Mean Corpuscular Volume 92.4 fL (80-100); Platelet Count 199 X10^3/uL (150-400); Red Blood Cell Count 4.41 X10^6/uL (4.5-5.9); Red Cell Distribution Width 13.6 % (11.6-14.8)
[2023-09-13 09:08] LABS: Aspartate Aminotransferase 25 IU/L (17-59); BUN Creatinine Ratio 25.7 (6-22); Blood Urea Nitrogen 19 mg/dL (9-20); Calcium 8.8 mg/dL (8.4-10.2); Carbon Dioxide 26 mmol/L (22-32); Chloride 105 mmol/L (98-107); Cholesterol 169 mg/dL (140-199); Estimated Glomerular Filt Rate > 60 mL/min (>60); Glucose 103 mg/dL (80-110); HDL Cholesterol 81 mg/dL (40-60); HEMOLYSIS < 15 (0-50); LDL Cholesterol Calculated 71 mg/dL (<100); Potassium 4.3 mmol/L (3.4-5.1); Sodium 136 mmol/L (137-145); Triglycerides 87 mg/dL (35-150)
[2023-09-13 09:09] LABS: C-Reactive Protein Quant < 0.5 mg/dL (<1.0)
[2023-09-13 09:17] LABS: HEMOLYSIS < 15 (0-50); Iron 132 ug/dL (49-181)
[2023-09-13 09:28] LABS: Percent Iron Saturation 45 % (20-50); Total Iron Binding Capacity 294 ug/dL (261-462); Transferrin 235 mg/dL (206-381)
[2023-09-13 09:34] LABS: Prostate Specific Antigen 0.944 ng/mL (0.10-4.00)
[2023-09-13 09:38] LABS: Ferritin 219 ng/mL (18-464)
[2023-09-13 09:53] LABS: Vitamin B12 473 pg/mL (239-931)
== END ==
LOC: LAB 07:44
PROVIDERS: PCP Internal Medicine; Referring Provider Pediatrics; Visit Provider Pediatrics
DX: G25.81 Restless legs syndrome (principal); E78.2 Mixed hyperlipidemia; N40.1 Benign prostatic hyperplasia with lower urinary tract symptoms; D50.9 Iron deficiency anemia, unspecified; E53.8 Deficiency of other specified B group vitamins; E61.1 Iron deficiency; N13.8 Other obstructive and reflux uropathy
CPT/HCPCS: 36415; 80048; 80061; 82607; 82728; 83540; 83550; 84153; 84450; 85027; 86140

== ENCOUNTER → 2024-06-03 07:26 | Outpatient (CLI) | payer MEDICARE, OTHER, SELFPAY ==
[2021-06-11 11:44] VITALS: BMI 28.0
[2024-06-03 08:11] LABS: Hematocrit 40.9 % (41-53); Mean Corpuscular HGB Conc 34.2 % (30-36); Mean Corpuscular Hemoglobin 31.1 PG (26-34); Mean Corpuscular Volume 90.8 fL (80-100); Platelet Count 205 X10^3/uL (150-400); Red Cell Distribution Width 13.7 % (11.6-14.8); White Blood Cell Count 8.1 X10^3/uL (4.5-11.0)
[2024-06-03 08:34] LABS: HEMOLYSIS < 15 (0-50)
[2024-06-03 08:41] LABS: Alanine Aminotransferase 29 IU/L (<50); Albumin 4.4 g/dL (3.5-5.0); Albumin Globulin Ratio 1.8 (1.0-2.8); Alkaline Phosphatase 78 U/L (38-126); Aspartate Aminotransferase 30 IU/L (17-59); Bilirubin Total 0.6 mg/dL (0.2-1.3); Blood Urea Nitrogen 20 mg/dL (9-20); Calcium 9.4 mg/dL (8.4-10.2); Carbon Dioxide 25 mmol/L (22-32); Chloride 101 mmol/L (98-107); Cholesterol 175 mg/dL (140-199); Estimated Glomerular Filt Rate > 60 mL/min (>60); Globulin 2.5 g/dL (1.7-4.1); Glucose 104 mg/dL (80-110); HDL Cholesterol 60 mg/dL (40-60); HEMOLYSIS < 15 (0-50); LDL Cholesterol Calculated 101 mg/dL (<100); Potassium 4.4 mmol/L (3.4-5.1); Sodium 136 mmol/L (137-145); Total Protein 6.9 g/dL (6.3-8.2); Triglycerides 71 mg/dL (35-150)
[2024-06-03 08:44] LABS: Iron 79 ug/dL (49-181)
[2024-06-03 08:49] LABS: Percent Iron Saturation 31 % (20-50); Total Iron Binding Capacity 258 ug/dL (261-462); Transferrin 240 mg/dL (206-381)
[2024-06-03 09:11] LABS: Prostate Specific Antigen 1.07 ng/mL (0.10-4.00)
[2024-06-03 09:15] LABS: Ferritin 239 ng/mL (18-464)
== END ==
PROVIDERS: PCP Internal Medicine; Referring Provider Internal Medicine; Visit Provider Internal Medicine
DX: N13.8 Other obstructive and reflux uropathy (principal); K92.1 Melena; E78.2 Mixed hyperlipidemia; N40.1 Benign prostatic hyperplasia with lower urinary tract symptoms
CPT/HCPCS: 36415; 80053; 80061; 82728; 83540; 83550; 84153; 85027

== ENCOUNTER → 2024-07-25 07:08 | Outpatient (CLI) | payer MEDICARE, OTHER, SELFPAY ==
[2024-07-16 10:14] VITALS: BMI 28.0
[2024-07-25 08:03] LABS: Add Manual Diff / Slide Review NO; Basophils Absolute Auto 0 /uL (0-100); Basophils Percent Auto 0.6 % (0-2); Eosinophils Absolute Auto 100 /uL (0-450); Eosinophils Percent Auto 2.1 % (2-4); Hematocrit 38.5 % (41-53); Hemoglobin 13.2 g/dL (13.5-17.5); Lymphocytes Absolute Auto 1700 /uL (1100-4500); Lymphocytes Percent Auto 23.4 % (25-40); Mean Corpuscular HGB Conc 34.3 % (30-36); Mean Corpuscular Hemoglobin 31.4 PG (26-34); Mean Corpuscular Volume 91.4 fL (80-100); Monocytes Absolute Auto 400 /uL (0-900); Monocytes Percent Auto 5.9 % (3-14); Neutrophils Absolute Auto 4800 /uL (1500-7000); Platelet Count 171 X10^3/uL (150-400); Red Blood Cell Count 4.21 X10^6/uL (4.5-5.9); Red Cell Distribution Width 14.4 % (11.6-14.8); White Blood Cell Count 7.1 X10^3/uL (4.5-11.0)
[2024-07-25 08:17] LABS: C-Reactive Protein Quant < 0.5 mg/dL (<1.0)
[2024-07-25 09:33] LABS: Erythrocyte Sedimentation Rate 2 MM/HR (0-15)
== END ==
PROVIDERS: PCP Internal Medicine; Referring Provider Internal Medicine; Visit Provider Internal Medicine
DX: M25.50 Pain in unspecified joint (principal); M35.3 Polymyalgia rheumatica
CPT/HCPCS: 36415; 85025; 85651; 86140

== ENCOUNTER 2024-08-30 13:20 | Emergency (ER) | payer MEDICARE, OTHER, SELFPAY ==
[2024-07-16 10:14] VITALS: BMI 28.0
[2024-08-30 13:27] VITALS: BP 162/79; PULSE 69; RESP 16; TEMP 36.6; O2SAT 97; BMI 29.3
--- NOTE | 2024-08-30 18:24 | ED.GENADULT ---
HPI - General Adult <Faye Fitzpatrick MD - Last Filed: 09/11/24 06:36> General Chief complaint: Recheck/Abnormal Lab/Rx Stated complaint: abd pain, rib pain, possible pmr Time Seen by Provider: 08/30/24 15:54 History of Present Illness HPI narrative: 78-year-old gentleman with history of progressive proximal leg weakness, gait instability, intermittent episodes of double vision and brain fog presents to the emergency room looking for immediate answers and resolution as I just can not stand it any longer. Primary care physician is Dr. Knowles, most recent visit was August 18. ER review from visit at the [facility] ER, patient presented there hoping to have an emergent rheumatology consults in the emergency department. He was complaining of migratory aches progressive proximal muscle weakness, underwent CT angiogram of the head and neck showing no acute changes or high-grade stenosis. CBC, CMP sed rate CRP were all normal. Negative troponin MELLY is negative. He had a rheumatology consult is arrange for mid May. patient was on prednisone 40 mg daily and was not sure that it was actually making definitive difference. [place] that it perhaps was less than his brain fog but his generalized weakness with lower extremity neuropathy was not improving. Patient describes his pain weakness is brain fog as essentially unbearable. Remains on 20 mg of prednisone daily, additional diagnoses include sleep apnea, anxiety, hypertension, hyperlipidemia, depression, idiopathic peripheral neuropathy. Related Data Home Medications ?Medication ?Instructions ?Recorded ?Confirmed coenzyme Q10 100 mg capsule 200 mg PO DAILY ##0 07/18/16 09/02/24 (CoQ-10) alpha lipoic acid 600 mg capsule 600 mg PO BID 10/04/21 09/02/24 aspirin 81 mg tablet,delayed 81 mg PO BID 03/28/23 09/02/24 release cholecalciferol (vitamin D3) 25 25 mcg PO DAILY 03/28/23 09/02/24 mcg (1,000 unit) capsule omeprazole 20 mg capsule,delayed 20 mg PO DAILY 06/23/24 09/02/24 release Previous Rx's ?Medication ?Instructions ?Recorded tadalafil 5 mg tablet 5 mg PO DAILY #90 tabs 07/19/22 fluoxetine 40 mg capsule 40 mg PO QAM #90 caps 04/04/24 fluoxetine 20 mg capsule 20 mg PO DAILY #90 caps 04/28/24 amlodipine 5 mg tablet 5 mg PO BEDTIME #90 tabs 06/17/24 lisinopril 20 mg tablet 20 mg PO BEDTIME #90 tabs 07/02/24 atorvastatin 40 mg tablet 40 mg PO BEDTIME #90 tabs 07/03/24 trazodone 50 mg tablet 50 mg PO BEDTIME PRN insomnia #30 08/15/24 tabs prednisone 1 mg tablet See Rx Instructions PO DAILY #50 08/26/24 tabs prednisone 5 mg tablet See Rx Instructions PO DAILY #100 08/26/24 tabs Allergies Allergy/AdvReac Type Severity Reaction Status Date / Time No Known Drug Allergies Allergy Verified 09/02/24 16:09 Review of Systems <Faye Fitzpatrick MD - Last Filed: 09/11/24 06:36> Review of Systems Narrative: Review of systems is markedly positive Patient History <Faye Fitzpatrick MD - Last Filed: 09/11/24 06:36> Medical History Anxiety (~1965) BPH w urinary obs/LUTS Carpal tunnel syndrome (~1984) Cataracts, bilateral (~2016) Central sleep apnea Chicken pox (~1951) Chronic insomnia Colon polyps (~1997) Depression (~2018) Depression, major, recurrent Easy bruisability Essential hypertension Generalized anxiety disorder GERD (gastroesophageal reflux disease) GERD without esophagitis Headache (~1979) Hearing loss (~1994) Hemorrhoid (~1992) History of elevated PSA (~1999) HLD (hyperlipidemia) HTN (hypertension) (~1979) Hx of esophageal spasm (~2018) Hypersomnia IBS (irritable bowel syndrome) (~2013) Iron deficiency Measles (~1953) Migraine without aura and responsive to treatment Migraines (~1979) Mixed hyperlipidemia Obstructive sleep apnea of adult Osteoarthritis (~1984) Osteoarthritis of right index finger Peripheral neuropathy (~1989) PLMD (periodic limb movement disorder) Polyneuropathy, unspecified Primary osteoarthritis involving multiple joints Primary osteoarthritis, left shoulder Scoliosis (~1964) Slow transit constipation Surgical History Anesthesia Hepatic artery aneurysm (~2015) History of bilateral carpal tunnel release (~2002) History of shoulder replacement (~08/2020) History of surgery History of total right hip arthroplasty (12/2010) Hx of bilateral cataract extraction Hx of cervical spinal arthrodesis (07/2008) Hx of hemorrhoidectomy (~1987) Hx of nasal septoplasty Hx of tonsillectomy Hx of transurethral resection of prostate Status post rotator cuff repair (~2006) Family History Father Failure to thrive Mother Mental health problem Brother Mental health problem Brother Cancer Diabetes mellitus Brother Mental health problem Grandmother Failure to thrive Grandfather Failure to thrive Social History household members: spouse alcohol intake: current Smoking Status: Never smoker alcohol intake frequency: a few times a week Exam <Faye Fitzpatrick MD - Last Filed: 09/11/24 06:36> Initial Vital Signs Initial Vital Signs: Vital Signs Temperature 97.9 F 08/30/24 13:27 Pulse Rate 69 08/30/24 13:27 Respiratory Rate 16 08/30/24 13:27 Blood Pressure 162/79 H 08/30/24 13:27 Pulse Oximetry 97 08/30/24 13:27 Oxygen Delivery Method Room Air 08/30/24 13:27 General: older appearing, frustrated, able to speak in complete sentences HEENT: Moist mucous membranes, normal sclera with reactive pupils, Respiratory: Lungs are clear to auscultation, no wheezing no rales no rhonchi. Full and symmetrical air movement Cardiac: Regular rate and rhythm no murmurs no bruits Abdomen: Soft, nontender, no rebound or guarding, no flank pain Skin: Warm and dry, no rashes Neurologic: Grossly neurologically intact with no obvious asymmetries or abnormalities, proximal muscle weakness with difficulty standing from a chair needs to use upper extremities to be able to stand. Gait instability walking. Stocking distribution neuropathy Extremities: No trauma, no significant lower extremity edema Psych: frustrated and continues to assertively request immediate answers <Sherri Lewis MD - Last Filed: 08/31/24 10:40> Initial Vital Signs Initial Vital Signs: Vital Signs Temperature 97.9 F 08/30/24 13:27 Pulse Rate 69 08/30/24 13:27 Respiratory Rate 16 08/30/24 13:27 Blood Pressure 162/79 H 08/30/24 13:27 Pulse Oximetry 97 08/30/24 13:27 Oxygen Delivery Method Room Air 08/30/24 13:27 Course <Faye Fitzpatrick MD - Last Filed: 09/11/24 06:36> Orders Ordered: ED Orders 08/31/24 04:24 MR head/brain wo/w con Stat Vital Signs Vital signs: Vital Signs - 8 hr 08/31/24 06:44 08/31/24 07:00 08/31/24 07:00 Temperature 98.1 F Pulse Rate 70 65 Respiratory Rate 16 Blood Pressure 179/79 H 159/77 H Pulse Oximetry 96 94 Oxygen Delivery Method Room Air 08/31/24 08:05 Temperature Pulse Rate 63 Respiratory Rate 17 Blood Pressure 145/71 H Pulse Oximetry 99 Oxygen Delivery Method Room Air <Sherri Lewis MD - Last Filed: 08/31/24 10:40> Course Course Narrative: Assumed care of patient at change of shift with full report. Patient awaiting MRI brain with and without contrast for further evaluation of subacute symptoms including weakness and brain fog. Orders Ordered: ED Orders 08/31/24 04:24 MR head/brain wo/w con Stat Vital Signs Vital signs: Vital Signs - 8 hr 08/31/24 06:44 08/31/24 07:00 08/31/24 07:00 Temperature 98.1 F Pulse Rate 70 65 Respiratory Rate 16 Blood Pressure 179/79 H 159/77 H Pulse Oximetry 96 94 Oxygen Delivery Method Room Air 08/31/24 08:05 Temperature Pulse Rate 63 Respiratory Rate 17 Blood Pressure 145/71 H Pulse Oximetry 99 Oxygen Delivery Method Room Air Medical Decision Making <Faye Fitzpatrick MD - Last Filed: 09/11/24 06:36> [facility] Narrative Medical decision making narrative: CC:Progressive proximal muscle weakness, gait instability, overall fatigue, brain fog and general misery Complicating co-morbidities: depression, peripheral neuropathy, reflux, generalized anxiety disorder, hypertension, hyperlipidemia unspecified polyneuropathy Data collected from: patient, Social determinants of health that may influence the patients condition: patient is adamant that an inability to find an answer to his chronic progressive issues is absolutely unacceptable. Did go to the [facility] to see if he could get an urgent rheumatologic evaluation, he does have an appointment mid August rather than the end of December and again noted that not having emergent to rheumatology consultation in the emergency department is unacceptable. Medical records reviewed: Notes from Dr. Knowles, sleep Medicine Clinic, walk-in clinic are all reviewed, please see summary in HPI above imaging studies to date include the CT angiogram of the neck that was done [facility] with no obvious abnormalities, he did have a brain MRI almost 2 years ago as part of the stroke workup that did not show acute pathology Differential considered: polymyalgia rheumatica is a possibility however he did not seem to have significant improvement with fairly large doses of steroid, unexplained polyneuropathy, unexplained peripheral neuropathy, progressive white matter disease, given recent CT scan of the head do not suspect mass or tumor, demyelinating disease, stroke Exam documented above, pertinent findings include: proximal muscle weakness, confusion, easy irritability, stocking distribution neuropathy Lab Test results independently reviewed as above. Pertinent findings: given recent workup within the last week at the [facility] additional blood work was not felt to be required with the today's visit Imaging studies independently reviewed: MRI with and without contrast of the brain is ordered Consultations: Treatments: Re-evaluations: Discussion: <Sherri Lewis MD - Last Filed: 08/31/24 10:40> Imaging Data MRI brain: Attestation: I personally reviewed and interpreted this imaging study as follows: My Impression: MRI brain without evidence of acute intracranial pathology on independent review. Radiologist's Impression: [place] [address] Magnetic Resonance Report Signed Patient: Lacie Callahan MR#: [id number] : 1945 Acct:[id number] Age/Sex: 78 / M Date of Service: 08/31/24 Loc: ED Accession Number: [id number] Procedure: MR head/brain wo/w con Ordering Provider: Faye Fitzpatrick MD PROCEDURE: MR HEAD/BRAIN WO/W CON INDICATIONS: proximal muscle weakness, progressive confusion and neuropathy TECHNIQUE: Noncontrast axial T1 spin echo, axial T2 fast spin echo, sagittal and axial FLAIR, coronal T2 fast spin echo, axial gradient echo, axial diffusion and ADC through the brain. After the administration of contrast, axial and coronal and sagittal T1 spin echo with fat saturation through the brain. COMPARISON: [facility], , MR HEAD/BRAIN WO/W CON, 07/15/2022, 9:01. FINDINGS: Image quality: Excellent. CSF spaces: Basal cisterns are patent. No extra-axial fluid collections. Ventricles are normal in size and shape. Brain: No midline shift. No intracranial bleeds or masses. No abnormal intracranial enhancement. There is cerebral volume loss for age. There is periventricular white matter chronic small vessel ischemic change. The brainstem appears normal. Diffusion-weighted images demonstrate no acute infarct. No chronic ischemic insults. Normal intravascular flow voids are present. Symmetric calcification can be seen involving the basal ganglia, which is considered to be normal for age. Skull and face: Calvarial marrow is normal in signal. Orbits appear normal. Note is made of bilateral lens replacements. Sinuses: No significant paranasal sinus mucosal thickening can be seen. There is [id number] left mastoid air cell fluid present. IMPRESSION: No masses or abnormal enhancement can be seen. No findings of acute or subacute infarction can be seen. No prior territorial infarct can be seen. Note is made of age-appropriate brain parenchymal volume loss and chronic small vessel ischemic changes. Additional findings: Lens replacements Oojc-qa-vuyvkypu left mastoid air cell fluid Dictated by: Alonzo Byrd M.D. on 08/31/2024 at 7:05 Approved by: Alonzo Byrd M.D. on 08/31/2024 at 7:08 MDM Narrative Medical decision making narrative: CC:Progressive proximal muscle weakness, gait instability, overall fatigue, brain fog and general misery Complicating co-morbidities: depression, peripheral neuropathy, reflux, generalized anxiety disorder, hypertension, hyperlipidemia unspecified polyneuropathy Data collected from: patient, Social determinants of health that may influence the patients condition: patient is adamant that an inability to find an answer to his chronic progressive issues is absolutely unacceptable. Did go to the [facility] to see if he could get an urgent rheumatologic evaluation, he does have an appointment mid August rather than the end of December and again noted that not having emergent to rheumatology consultation in the emergency department is unacceptable. Medical records reviewed: Notes from Dr. Knowles, sleep Medicine Clinic, walk-in clinic are all reviewed, please see summary in HPI above imaging studies to date include the CT angiogram of the neck that was done [facility] with no obvious abnormalities, he did have a brain MRI almost 2 years ago as part of the stroke workup that did not show acute pathology Differential considered: polymyalgia rheumatica is a possibility however he did not seem to have significant improvement with fairly large doses of steroid, unexplained polyneuropathy, unexplained peripheral neuropathy, progressive white matter disease, given recent CT scan of the head do not suspect mass or tumor, demyelinating disease, stroke Exam documented above, pertinent findings include: proximal muscle weakness, confusion, easy irritability, stocking distribution neuropathy Lab Test results independently reviewed as above. Pertinent findings: given recent workup within the last week at the [facility] additional blood work was not felt to be required with the today's visit Imaging studies independently reviewed: MRI with and without contrast of the brain is ordered Re-evaluations: Assume care at change of shift with full report. Patient taken to MRI at 7:00 a.m. Discussion: Extensive discussion held with patient regarding workup and results this far. Reiterated the importance of follow-up with rheumatology as has previously been recommended. Given the chronic/subacute symptoms without acute worsening low suspicion for acute process that would require admission to the hospital at this time. Patient endorses significant frustration given his inability to be seen by specialists however does have rheumatology scheduled within the next 3 weeks. Patient similarly counseled regarding follow up with his PCP for close re-evaluation and management of his steroids and other medications. Discharge Plan Departure Patient Disposition: Home Clinical Impression: Polyneuropathy, Essential hypertension, Generalized muscle weakness Activity Restrictions/Additional Instructions: You were seen in the emergency department for your weakness, gait instability, and brain fog symptoms. Evaluation here included examination and MRI imaging. Your MRI was overall reassuring and did not demonstrate any evidence of an acute process to explain your ongoing symptoms. We do recommend that you follow up closely with your primary care provider, and agree with continuing your rheumatology workup as currently scheduled. If you develop new weakness, slurred speech, recurrent falls, vision changes, difficulty breathing, syncope, or other symptoms that are concerning to you, please return to the emergency department for further evaluation. Prescriptions: No Action fluoxetine 20 mg capsule 20 mg PO DAILY Qty: 90 1RF Rx Instructions: Take with 40mg capsule daily for 60mg total fluoxetine 40 mg capsule 40 mg PO QAM Qty: 90 2RF omeprazole 20 mg capsule,delayed release(DR/EC) 20 mg PO DAILY coenzyme Q10 [CoQ-10] 100 mg Capsule 200 mg PO DAILY Qty: 0 tadalafil 5 mg tablet 5 mg PO DAILY Qty: 90 3RF Rx Instructions: This script replaced the 20 mg daily to 5 mg daily. Please d/c the 20 mg. Thank you! amlodipine 5 mg tablet 5 mg PO BEDTIME Qty: 90 3RF lisinopril 20 mg tablet 20 mg PO BEDTIME Qty: 90 3RF atorvastatin 40 mg tablet 40 mg PO BEDTIME Qty: 90 3RF trazodone 50 mg tablet 50 mg PO BEDTIME MDD 150mg PRN (Reason: insomnia) Qty: 30 2RF prednisone 1 mg tablet See Rx Instructions PO DAILY Qty: 50 0RF Rx Instructions: Prednisone dose started at 40mg. Wean down by 1mg Prednisone per day. Take up to 4 tabs of 1mg Prednisone per day to follow Prednisone taper. prednisone 5 mg tablet See Rx Instructions PO DAILY Qty: 100 0RF Rx Instructions: Prednisone dose started at 40mg. Wean down by 1mg Prednisone per day. Take up to 8 tabs of 5mg Prednisone per day to follow Prednisone taper. aspirin 81 mg tablet,delayed release (DR/EC) 81 mg PO BID cholecalciferol (vitamin D3) 25 mcg (1,000 unit) capsule 25 mcg PO DAILY alpha lipoic acid 600 mg capsule 600 mg PO BID Referrals: Reyes Knowles MD [Primary Care Provider, Internal Medicine] Stand Alone Forms: Patient Portal/API/Survey
--- NOTE | 2024-08-30 19:30 | PC.NURSE ---
This nurse assumed role as ER-charge nurse at 1930. This nurse was informed by off-going charge nurse that this patient is no longer in department or at facility. He left hospital after evaluation by provider, sometime after 1600. He was instructed by provider to return to ER at approximately 0600 the following day to get his MRI. Provider requested patient be left on tracker for when he returns. To this RN's knowledge, patient was not in hospital while I was broker in charge on 08/30/24.
--- NOTE | 2024-08-31 04:24 | DI.MRI.S_ITS ---
PROCEDURE: MR HEAD/BRAIN WO/W CON INDICATIONS: proximal muscle weakness, progressive confusion and neuropathy TECHNIQUE: Noncontrast axial T1 spin echo, axial T2 fast spin echo, sagittal and axial FLAIR, coronal T2 fast spin echo, axial gradient echo, axial diffusion and ADC through the brain. After the administration of contrast, axial and coronal and sagittal T1 spin echo with fat saturation through the brain. COMPARISON: [facility], MR, MR HEAD/BRAIN WO/W CON, 07/15/2022, 9:01. FINDINGS: Image quality: Excellent. CSF spaces: Basal cisterns are patent. No extra-axial fluid collections. Ventricles are normal in size and shape. Brain: No midline shift. No intracranial bleeds or masses. No abnormal intracranial enhancement. There is cerebral volume loss for age. There is periventricular white matter chronic small vessel ischemic change. The brainstem appears normal. Diffusion-weighted images demonstrate no acute infarct. No chronic ischemic insults. Normal intravascular flow voids are present. Symmetric calcification can be seen involving the basal ganglia, which is considered to be normal for age. Skull and face: Calvarial marrow is normal in signal. Orbits appear normal. Note is made of bilateral lens replacements. Sinuses: No significant paranasal sinus mucosal thickening can be seen. There is [id number] left mastoid air cell fluid present. IMPRESSION: No masses or abnormal enhancement can be seen. No findings of acute or subacute infarction can be seen. No prior territorial infarct can be seen. Note is made of age-appropriate brain parenchymal volume loss and chronic small vessel ischemic changes. Additional findings: Lens replacements [id number]-nf-[id number] left mastoid air cell fluid Dictated by: Alonzo Byrd M.D. on 08/31/2024 at 7:05 Approved by: Alonzo Byrd M.D. on 08/31/2024 at 7:08
[2024-08-31 06:44] VITALS: BP 179/79; PULSE 70; RESP 16; TEMP 36.7; O2SAT 96; BMI 29.3
[2024-08-31 07:00] VITALS: BP 159/77; PULSE 65; O2SAT 94
--- NOTE | 2024-08-31 07:16 | PC.NURSE ---
pt to MRI per wc
--- NOTE | 2024-08-31 07:21 | PC.NURSE ---
Took report and assumed care of pt at 0710, pt already on way to MRI. Per nightshift, new set of VS and assessment done within last hour. Will perform assessment and new set of VS upon return from scan.
[2024-08-31 08:05] VITALS: BP 145/71; PULSE 63; RESP 17; O2SAT 99
== END 2024-08-31 09:44 | disposition home or self-care (01) ==
PROVIDERS: Emergency Provider Student in an Organized Health Care Education/Training Program; PCP Internal Medicine
DX: G62.9 Polyneuropathy, unspecified (principal); H53.2 Diplopia; I10 Essential (primary) hypertension; R53.1 Weakness; R29.818 Other symptoms and signs involving the nervous system; R26.89 Other abnormalities of gait and mobility
CPT/HCPCS: 70553; 99281; 99284; A9579

== ENCOUNTER → 2024-09-08 07:02 | Outpatient (CLI) | payer MEDICARE, OTHER, SELFPAY ==
[2024-07-16 10:14] VITALS: BMI 28.0
[2024-09-08 07:29] LABS: Add Manual Diff / Slide Review NO; Basophils Absolute Auto 100 /uL (0-100); Basophils Percent Auto 0.8 % (0-2); Eosinophils Absolute Auto 100 /uL (0-450); Eosinophils Percent Auto 0.8 % (2-4); Hematocrit 41.7 % (41-53); Hemoglobin 14.1 g/dL (13.5-17.5); Lymphocytes Absolute Auto 2600 /uL (1100-4500); Lymphocytes Percent Auto 25.5 % (25-40); Mean Corpuscular HGB Conc 33.9 % (30-36); Mean Corpuscular Hemoglobin 31.5 PG (26-34); Mean Corpuscular Volume 92.8 fL (80-100); Monocytes Absolute Auto 700 /uL (0-900); Monocytes Percent Auto 7.3 % (3-14); Neutrophils Absolute Auto 6700 /uL (1500-7000); Neutrophils Percent Auto 65.6 % (50-75); Platelet Count 182 X10^3/uL (150-400); Red Blood Cell Count 4.49 X10^6/uL (4.5-5.9); White Blood Cell Count 10.2 X10^3/uL (4.5-11.0)
[2024-09-08 07:51] LABS: HEMOLYSIS < 15 (0-50); Iron 105 ug/dL (49-181)
[2024-09-08 07:53] LABS: Alanine Aminotransferase 27 IU/L (<50); Albumin 3.9 g/dL (3.5-5.0); Albumin Globulin Ratio 1.7 (1.0-2.8); Alkaline Phosphatase 58 U/L (38-126); Aspartate Aminotransferase 26 IU/L (17-59); BUN Creatinine Ratio 34.3 (6-22); Bilirubin Total 0.6 mg/dL (0.2-1.3); Blood Urea Nitrogen 34 mg/dL (9-20); Calcium 9.3 mg/dL (8.4-10.2); Carbon Dioxide 24 mmol/L (22-32); Chloride 104 mmol/L (98-107); Estimated Glomerular Filt Rate > 60 mL/min (>60); Globulin 2.3 g/dL (1.7-4.1); Glucose 102 mg/dL (70-99); HEMOLYSIS < 15 (0-50); Sodium 136 mmol/L (137-145); Total Protein 6.2 g/dL (6.3-8.2)
[2024-09-08 07:55] LABS: Cholesterol 274 mg/dL (140-199); Triglycerides 70 mg/dL (35-150)
[2024-09-08 08:02] LABS: Percent Iron Saturation 45 % (20-50); Total Iron Binding Capacity 233 ug/dL (261-462); Transferrin 222 mg/dL (206-381)
[2024-09-08 08:03] LABS: HDL Cholesterol 145 mg/dL (40-60); LDL Cholesterol Calculated 115 mg/dL (<100)
[2024-09-08 08:29] LABS: Ferritin 262 ng/mL (18-464)
== END ==
PROVIDERS: Family Provider Internal Medicine; PCP Internal Medicine; Referring Provider Pediatrics; Visit Provider Pediatrics
DX: E83.10 Disorder of iron metabolism, unspecified (principal); E78.2 Mixed hyperlipidemia; G47.61 Periodic limb movement disorder; I10 Essential (primary) hypertension
CPT/HCPCS: 36415; 80053; 80061; 82728; 83540; 83550; 85025

== ENCOUNTER → 2025-01-07 07:51 | Outpatient (CLI) | payer MEDICARE, OTHER, SELFPAY ==
[2024-07-16 10:14] VITALS: BMI 28.0
--- NOTE | 2025-01-07 07:52 | DI.ECHO.S_ITS ---
[facility]+ [facility] : : [id number] : : [place] : : [id number] : : Phone: [phone] Echocardiogram Report + + :Name: MATT ISLAS Study Date: 01/07/2025 Height: 76 in : :[facility] ReadingLocation: Weight: 236 lb : : Gender: Male BSA: 2.4 m2 : :: 1945 Age: 79 yrs BP: 153/84 mmHg: :Reason For Study: HYPERTENSION : :Ordering Physician: DARÍO, : :TAMMY Doran Performed By: Raleigh Perla : :Referring: TAMMY CHANEL : + + Interpretation Summary The left ventricle is normal in size. Left ventricular systolic function is mildly reduced. The ejection fraction is estimated to be 45-50%. Left ventricular function has slightly worsened compared to the previous exam. There is inferolateral and anterolateral hypokinesis. Grade I diastolic dysfunction with normal left atrial pressure. The right ventricle is mild to moderately dilated. The right ventricular systolic function is normal. The right ventricular systolic pressure is estimated to be at least 37 mmHg based on an estimated right atrial pressure of 8 mm Hg. The left atrium is moderately dilated. There is mild mitral regurgitation. There is no other significant valvular heart disease. The ascending aorta is mildly enlarged. Procedure: A two-dimensional transthoracic echocardiogram with color flow and Doppler was performed. A contrast injection of Definity was performed to improve assessment for apical thrombus. The study quality was technically good. Comparison is made with the echocardiogram of 07/18/2016. The patient was in normal sinus rhythm during the exam. Left Ventricle: The left ventricle is normal in size. There is normal left ventricular wall thickness. There is no ventricular septal defect visualized. Trabeculae near apex are visualized. No thrombus is observed. Left ventricular systolic function is mildly reduced. The ejection fraction is estimated to be 45-50%. Left ventricular function has slightly worsened compared to the previous exam. There is inferolateral and anterolateral hypokinesis. Grade I diastolic dysfunction with normal left atrial pressure. Right Ventricle: The right ventricle is mild to moderately dilated. The right ventricular systolic function is normal. Atria: The left atrium is moderately dilated. The right atrium is mildly dilated. There is no Doppler evidence for an interatrial shunt. Mitral Valve: The mitral valve leaflets appear mildly thickened. There is mild mitral regurgitation. Aortic Valve: The aortic valve is trileaflet. The aortic valve opens well. No aortic regurgitation is present. Tricuspid Valve: The tricuspid valve leaflets are thin and pliable. There is mild tricuspid regurgitation. The right ventricular systolic pressure is estimated to be at least 37 mmHg based on an estimated right atrial pressure of 8 mm Hg. Pulmonic Valve: The pulmonic valve leaflets are thin and pliable; valve motion is normal. There is mild pulmonic regurgitation. There is no other significant valvular heart disease. Great Vessels: The aortic root is normal size. The ascending aorta is mildly enlarged. The pulmonary artery is normal size. The IVC is dilated (diameter is greater than 2.1 cm) yet it collapses greater than 50% with a sniff. This suggests a right atrial pressure of 8 mm Hg. Pericardium/ Pleura There is no pericardial effusion. There is no pleural effusion. MMode/2D Measurements & Calculations LVIDd: 5.7 cm LVOT diam: 2.2 cm LVIDs: 4.4 cm Ao root diam: 3.6 cm FS: 23.4 % asc Aorta Diam: 3.7 cm EPSS: 1.1 cm IVSd: 0.91 cm LVPWd: 0.98 cm LV siddiqi. diameter/BSA (cm/m^2): 2.4 LV sys. diameter/BSA (cm/m^2): 1.8 LA A2 area: 29.6 cm2 RA long axis: 5.5 cm LA A4 area: 26.7 cm2 RA area: 21.5 cm2 LA length (vol): 6.4 cm RA vol: 71.2 ml LA vol: 104.5 ml RA : 30.0 ml/m2 LA vol index: 43.9 ml/m2 IVC diam: 2.8 cm RVD1 (basal): 4.7 cm RVD2 (mid): 4.4 cm TAPSE: 3.5 cm Doppler Measurements & Calculations Ao V2 max: 124.1 cm/sec LVOT Max Tan: 79.2 cm/sec Ao V2 mean: 88.0 cm/sec LV V1 max P.5 mmHg Ao max P.2 mmHg LV V1 VTI: 21.6 cm Ao mean P.4 mmHg [place]USTIN(I,D): 2.8 cm2 Ao V2 VTI: 29.8 cm [place](V,D): 2.5 cm2 sev ratio: 0.73 [place] indexed to BSA (cm^2/m^2): 1.2 MV E max tan: 53.1 cm/sec TR max tan: 268.8 cm/sec MV A max tan: 78.7 cm/sec TR max P.9 mmHg MV E/A: 0.68 PA V2 max: 98.1 cm/sec Med Peak E' Tan: 5.4 cm/sec PA V2 mean: 65.2 cm/sec E/E' med: 9.9 PA mean P.9 mmHg Lat Peak E' Tan: 7.4 cm/sec PA pr(Accel): 46.5 mmHg E/E' lat: 7.2 E/e' average: 8.5 MV dec time: 0.33 sec SV(LVOT): 84.7 ml Reading Physician:03:42 PM
[2025-01-07 08:43] LABS: Add Manual Diff / Slide Review NO; Hematocrit 39.5 % (41-53); Hemoglobin 13.6 g/dL (13.5-17.5); Lymphocytes Absolute Auto 1800 /uL (1100-4500); Mean Corpuscular HGB Conc 34.4 % (30-36); Mean Corpuscular Hemoglobin 32.1 PG (26-34); Mean Corpuscular Volume 93.3 fL (80-100); Platelet Count 189 X10^3/uL (150-400)
[2025-01-07 08:58] LABS: Alanine Aminotransferase 21 IU/L (<50); Albumin 4.2 g/dL (3.5-5.0); Albumin Globulin Ratio 1.8 (1.0-2.8); Alkaline Phosphatase 56 U/L (38-126); Blood Urea Nitrogen 21 mg/dL (9-20); Calcium 9.2 mg/dL (8.4-10.2); Carbon Dioxide 26 mmol/L (22-32); Chloride 104 mmol/L (98-107); Estimated Glomerular Filt Rate > 60 mL/min (>60); Globulin 2.4 g/dL (1.7-4.1); Glucose 99 mg/dL (70-99); HEMOLYSIS < 15 (0-50); Potassium 4.3 mmol/L (3.4-5.1); Sodium 138 mmol/L (137-145); Total Protein 6.6 g/dL (6.3-8.2)
[2025-01-07 09:29] LABS: TSH w/ Reflex to FT4 0.81 uIU/mL (0.47-4.68)
== END ==
LOC: ECHO 07:52
PROVIDERS: PCP Family Medicine; Referring Provider Family Medicine; Visit Provider Family Medicine
DX: I08.1 Rheumatic disorders of both mitral and tricuspid valves (principal); I72.8 Aneurysm of other specified arteries; I77.89 Other specified disorders of arteries and arterioles; I10 Essential (primary) hypertension; E78.2 Mixed hyperlipidemia; G62.9 Polyneuropathy, unspecified; N40.1 Benign prostatic hyperplasia with lower urinary tract symptoms; N13.8 Other obstructive and reflux uropathy
CPT/HCPCS: 36415; 80053; 84443; 85025; C8929; Q9957

== ENCOUNTER → 2025-01-15 08:08 | Outpatient (CLI) | payer MEDICARE, OTHER, SELFPAY ==
[2024-07-16 10:14] VITALS: BMI 28.0
--- NOTE | 2025-01-15 16:58 | DI.NM.S_ITS ---
DATE OF SERVICE: 01/15/2025 EXERCISE TREADMILL STRESS TEST REPORT PROCEDURE: Exercise treadmill stress test without imaging. ORDERING PROVIDER: June Souza M.D. INDICATIONS: The patient is a 79-year-old male with fatigue and an abnormal echocardiogram. FINDINGS: 1. The patient was able to exercise for 6 minutes 13 seconds on a standard Elmer protocol suggesting good exercise capacity with an JAMILA of -8%, achieving 7.0 METS. 2. He had a normal heart rate response to exercise, achieving a maximum heart rate of 132 bpm (92% of his predicted maximum). He had a mild hypertensive blood pressure response with a resting blood pressure 150/90 that increased to a maximum of 200/94. 3. He had moderate exertional dyspnea but no chest discomfort or other anginal symptom. 4. His resting ECG shows sinus rhythm with very subtle ST depression in the inferolateral leads. With stress, these become slightly accentuated with probable 0.5 to 1.[address] depression in the inferolateral leads although motion artifact makes definitive measurement challenging. Given that the ST abnormalities normalize rapidly in recover with no late ST or T-wave changes, this is a nonspecific finding. There were no arrhythmias. IMPRESSION: 1. Borderline abnormal exercise treadmill stress test for ischemia with subtle, nonspecific ST-segment shifts with exercise that resolve promptly in recovery, suggesting a low risk study. 2. Good exercise capacity without angina or arrhythmias. 3. He had a mild hypertensive blood pressure response to exercise with a maximum blood pressure of 200/94. Lacie Callahan - HARINI/margot/RAZA doc#: [id number]/job#: [id number] dd: 01/15/2025 16:33:00 dt: 01/15/2025 16:44:00 DICTATING MD/COPIES TO: Golden Ni MD; June Souza M.D. COPIES MNE: ZULEMA;
== END ==
PROVIDERS: PCP Family Medicine; Referring Provider Family Medicine; Visit Provider Family Medicine
DX: E78.2 Mixed hyperlipidemia (principal)
CPT/HCPCS: 93017

== ENCOUNTER → 2025-02-03 13:30 | Outpatient (CLI) | payer MEDICARE, OTHER, SELFPAY ==
[2024-07-16 10:14] VITALS: BMI 28.0
--- NOTE | 2025-02-03 13:31 | DI.CT.S_ITS ---
PROCEDURE: CT ANGIO HEAD AND NECK INDICATIONS: headaches, ringing in ears TECHNIQUE: After the administration of intravenous contrast, 1 mm thick sections acquired from the aortic arch through the [place] of [place]. MIP reformats of the arterial vasculature were utilized. COMPARISON: None. FINDINGS: Image quality: Diagnostic. Cerebral CT Angiogram: Internal carotid arteries: No acute findings. Intracranial ICA are patent with no significant stenosis. No occlusion. No aneurysm. Anterior cerebral arteries: Unremarkable. No significant stenosis. No occlusion. No aneurysm. Middle cerebral arteries: Unremarkable. No significant stenosis. No occlusion. No aneurysm. Posterior cerebral arteries: Unremarkable. No significant stenosis. No occlusion. No aneurysm. Basilar artery: Unremarkable. No significant stenosis. No occlusion. No aneurysm. Vertebral arteries: Unremarkable as visualized. Dural venous sinuses: Unremarkable given phase of enhancement. Other: Arterial phase appearance of the brain parenchyma is unremarkable. Neck CT Angiogram: Internal carotid arteries: Mild atherosclerotic calcification the proximal ICA without stenosis utilizing NASCET criteria Common carotid arteries: Unremarkable. No significant stenosis. No dissection or occlusion. External carotid arteries: Unremarkable. No occlusion. Vertebral arteries: Unremarkable. No significant stenosis. No dissection or occlusion. Aortic Arch and Mediastinum: Partially visualized aortic arch unremarkable without evidence of aneurysm. Origins of the great vessels unremarkable. Other: Arterial phase soft tissues of the neck and chest are unremarkable. IMPRESSION: Mild atherosclerotic calcification without significant stenosis, aneurysm or vascular malformation in the head or neck. C4 through 7 instrumented discectomy and fusion. No hardware failure or loosening. Approved by: Magdaleno Galicia M.D. on 02/03/2025 at 14:49
== END ==
LOC: CT 13:31
PROVIDERS: PCP Family Medicine; Referring Provider Family Medicine; Visit Provider Family Medicine
DX: H93.19 Tinnitus, unspecified ear (principal); R51.9 Headache, unspecified; I10 Essential (primary) hypertension; Z98.1 Arthrodesis status
CPT/HCPCS: 70496; 70498; Q9967